=== PATIENT | female | born 1970 | race Caucasian/White ===

== ENCOUNTER 2019-05-31 12:12 | Inpatient (IN) | payer BC, OTHER ==
[2019-05-31] MEDS ORDERED: morphine CARPU-JECT 4 MG/1 ML DISP.SYRIN IVPUSH ONE (14:34)
[2019-05-31] MEDS ORDERED: morphine SULFATE 4 MG/ML VIAL ONE (15:01)
[2019-05-31] MEDS ORDERED: SODIUM CHLORIDE 1,000 ML IV ONE ×2 (15:17→17:11)
--- NOTE | 2019-05-31 15:18 | PDOC ---
*Physical Exam - Vital Signs Last Vital Signs Temp Pulse Resp BP Pulse Ox 99.4 F 130 H 19 140/73 97 05/31/19 12:15 05/31/19 12:15 05/31/19 12:15 05/31/19 12:15 05/31/19 12:15 - Physical Exam Comments: 05/31/19 15:59 The patient was seen and evaluated in conjunction with RASHAAD Hooker under my direct supervision, ancillary studies were reviewed. I independently evaluated the patient and I agree with the plan as outlined by RASHAAD Hooker . 48y F presenting with L flank/back pain since last night asociated with urinary urgency w/o vmiting, diarrhea, dysuia, melena, bpr, anterior abd pain. social: chronic smoker no PMD on exam pt in no distress, however noted to be tachycardic and hot to touch. pts rectal temp is febrile ddx - diverticulitis vs uti vs peyelonephriis sepsis orderset obtained fluid resusitation tylenol awaiting UA anticipate CT abd ED Treatment Course - LABORATORY CBC & Chemistry Diagram: 05/31/19 15:13 05/31/19 15:13 Medical Decision Making - Critical Care Time Total Critical Care Time (minutes): 45 Critical Care Statement: The care of this patient involved high complexity decision making to prevent further life threatening deterioration of the patient 's condition and/or to evaluate & treat vital organ system(s) failure or risk of failure. - Medical Decision Making 05/31/19 17:18 pts labs reviewed noted for leukocytosis suspect pyelo pt writen for abx awaiitng CT, anticipate admission for further mangement BP borderline - approx 102/68 currently after 2L of NS will continue to fluid resusitate as necessary 05/31/19 18:05 pt has a pulse differenial in her UE MAP of 78 in R arm and 57 in L arm - pt denies any complain of back pain, ches tpain, arm pain/tingling/numbness with use. will add on CTA to eval further her vasculature for dissection vs stenosis vs anatomic variation *DC/Admit/Observation/Transfer Diagnosis at time of Disposition: Fever Qualifiers: Fever type: unspecified Qualified Code(s): R50.9 - Fever, unspecified - Referrals - Patient Instructions - Post Discharge Activity
[2019-05-31] MEDS ORDERED: ACETAMINOPHEN 1000 MG/100 ML VIAL (NON FORMULARY) IVPB ONE ×2 (15:33→21:11)
[2019-05-31] MEDS ORDERED: ACETAMINOPHEN INJECTION 100 ML IVPB ONE ×2 (15:37→23:53)
[2019-05-31 15:45] LABS: BASO % 0.5 % (0-2.0); EOS % 0.2 % (0-4.5); EPI CELLS 4.3 /HPF (0-5/HPF); HEMATOCRIT 41.8 % (32.4-45.2); HYALINE CASTS 16 /lpf (0-8); LYMPH % 13.9 % (8-40); MCH 31.9 pg (25.7-33.7); MCHC 33.5 g/dl (32.0-36.0); MEAN PLT VOLUME 6.7 fl (7.5-11.1); MONO % 11.7 % (3.8-10.2); NEUT % 73.7 % (42.8-82.8); PLATELET COUNT 337 K/MM3 (134-434); RDW 13.3 % (11.6-15.6); URINE APPEARANCE TURBID; URINE BACTERIA 3516.8 /hpf (NEGATIVE); URINE BILIRUBIN NEGATIVE (NEGATIVE); URINE COLOR YELLOW; URINE GLUCOSE (UA) NEGATIVE (NEGATIVE); URINE KETONE NEGATIVE (NEGATIVE); URINE LEUK ESTERASE 3+ (NEGATIVE); URINE NITRITE NEGATIVE (NEGATIVE); URINE PROTEIN 2+ (NEGATIVE); URINE RBC 21 /hpf (0-4); URINE UROBILINOGEN 0.2 mg/dL (0.2-1.0); URINE WBC 1435 /hpf (0-5); WHITE BLOOD COUNT 16.8 K/mm3 (4.0-10.0)
--- NOTE | 2019-05-31 15:45 | PDOC ---
History of Present Illness - General Chief Complaint: Pain, Acute Stated Complaint: PAIN/URINARY PROBLEM Time Seen by Provider: 05/31/19 13:43 History Source: Patient Exam Limitations: Language Barrier Past History - Past Medical History Allergies/Adverse Reactions: Allergies Allergy/AdvReac Type Severity Reaction Status Date / Time No Known Allergies Allergy Verified 05/31/19 12:17 Home Medications: Ambulatory Orders Doxycycline Hyclate [Vibramycin -] 100 mg PO BID@1000,1800 #20 capsule 05/25/18 Anemia: No Asthma: No Cancer: No Cardiac Disorders: No CVA: No COPD: No CHF: No Dementia: No Diabetes: No GI Disorders: No Disorders: No HTN: No Liver Disease: No Seizures: No Thyroid Disease: No - Surgical History Neurologic Surgery: No - Suicide/Smoking/Psychosocial Hx Smoking History: Never smoked Have you smoked in the past 12 months: Yes Number of Cigarettes Smoked Daily: 5 Information on smoking cessation initiated: No 'Breaking Loose' booklet given: 05/22/18 Hx Alcohol Use: No Drug/Substance Use Hx: No Substance Use Type: None Hx Substance Use Treatment: No *Physical Exam - Vital Signs Last Vital Signs Temp Pulse Resp BP Pulse Ox 98.0 F 117 H 20 89/73 L 94 L 05/31/19 15:35 05/31/19 15:35 05/31/19 15:35 05/31/19 15:35 05/31/19 15:35 - Physical Exam General Appearance: Yes: Mild Distress Respiratory/Chest: positive: Lungs Clear, Normal Breath Sounds. negative: Respiratory Distress Cardiovascular: positive: Regular Rhythm, Tachycardia. negative: Murmur Female Pelvic Exam: positive: normal adnexa. negative: CMT, discharge, adnexal tenderness, vaginal bleeding Gastrointestinal/Abdominal: positive: Tender (LLQ), Soft, Guarding (along LLQ). negative: Distended, Rebound, Hernia, Mass Musculoskeletal: negative: CVA Tenderness, CVA Tenderness (L) Neurologic: positive: Alert, Normal Mood/Affect ED Treatment Course - LABORATORY CBC & Chemistry Diagram: 05/31/19 15:13 05/31/19 15:13 Medical Decision Making - Medical Decision Making 48 y/o F with no sig pmh presents with LLQ abd pain radiating to back from yesterday along with increased urinary frequency and urgency, but states only passing a little urine. Also mentions subjective fever from last night and nausea. Denies URI sxs, sob, cp, vomiting, diarrhea, unusual vaginal discharge. Is sexually active with only her . Has irregular menstrual cycles; last cycle was 2 weeks ago. Denies prior surgeries. Patient was able to void normally in ED Consider kidney stone? pyelo? diverticulitis? Repeat temp was 98 orally EKG: Sinus tach at 126 Patient later noted with drop in blood pressure to 89/73; HR has improved to 116 Patient getting IVF Will check rectal temp Sepsis protocol initiated Labs sent and pending 05/31/19 15:40 Rectal temp was 101.5 05/31/19 15:56 Patient with leukocytosis, +urine for infection Urine culture was sent Will need CT A/P as well to r/o other pathology Signed out to RASHAAD Barrientos 05/31/19 16:13 *DC/Admit/Observation/Transfer Diagnosis at time of Disposition: Fever Qualifiers: Fever type: unspecified Qualified Code(s): R50.9 - Fever, unspecified - Referrals - Patient Instructions - Post Discharge Activity
[2019-05-31 16:08] LABS: ALBUMIN 3.3 g/dl (3.4-5.0); ALK PHOS 66 U/L (45-117); ANION GAP 8 MMOL/L (8-16); BILIRUBIN,TOTAL 0.4 mg/dL (0.2-1); BLOOD UREA NITROGEN 10.4 mg/dL (7-18); CALCIUM 8.8 mg/dL (8.5-10.1); CHLORIDE 105 mmol/L (98-107); CO2 24 mmol/L (21-32); CREATININE 0.5 mg/dL (0.55-1.3); GLUCOSE,RANDOM 90 mg/dL (74-106); SGOT/AST 13 U/L (15-37); SGPT/ALT 18 U/L (13-61); SODIUM 136 mmol/L (136-145); TOT PROT 6.7 g/dl (6.4-8.2)
[2019-05-31] MEDS ORDERED: CEFTRIAXONE 1 GM in DEXTROSE 5%-WATER - 50 ML IVPB ONE (16:15)
--- NOTE | 2019-05-31 16:25 | PDOC ---
*Physical Exam - Vital Signs Last Vital Signs Temp Pulse Resp BP Pulse Ox 101.5 F H 117 H 20 89/73 L 94 L 05/31/19 16:04 05/31/19 15:35 05/31/19 15:35 05/31/19 15:35 05/31/19 15:35 - Physical Exam General Appearance: Yes: Nourished, Appropriately Dressed, Mild Distress ( appears diaphoretic, weak) Respiratory/Chest: positive: Lungs Clear, Normal Breath Sounds. negative: Rhonchi, Stridor, Wheezing Cardiovascular: positive: Tachycardia Gastrointestinal/Abdominal: positive: Tender (LLQ), Flat, Soft, Guarding, Tenderness (LLQ). negative: Rebound Extremity: positive: Other (1+ radial pulse in the L arm, R arm 3+ radial pulse) Neurologic: positive: Fully Oriented, Alert, Normal Mood/Affect, Normal Response ED Treatment Course - LABORATORY CBC & Chemistry Diagram: 05/31/19 15:13 05/31/19 15:13 - ADDITIONAL ORDERS Additional order review: Laboratory Results 05/31/19 05/31/19 05/31/19 15:13 15:13 15:13 Sodium Potassium Chloride Carbon Dioxide Anion Gap BUN Creatinine Est GFR (CKD-EPI)AfAm Est GFR (CKD-EPI)NonAf Random Glucose Calcium Total Bilirubin AST ALT Alkaline Phosphatase Total Protein Albumin Serum , Qual Negative Urine Color Yellow Urine Appearance Turbid Urine pH 5.0 Ur Specific [place] 1.012 Urine Protein 2+ H Urine Glucose (UA) Negative Urine Ketones Negative Urine Blood 2+ H Urine Nitrite Negative Urine Bilirubin Negative Urine Urobilinogen 0.2 Ur Leukocyte Esterase 3+ H Urine WBC (Auto) 1435 Urine RBC (Auto) 21 Urine Casts (Auto) 16 U Epithel Cells (Auto) 4.3 Urine Bacteria (Auto) 3516.8 Urine HCG, Qual Negative 05/31/19 15:13 Sodium 136 Potassium 4.0 Chloride 105 Carbon Dioxide 24 Anion Gap 8 BUN 10.4 Creatinine 0.5 L Est GFR (CKD-EPI)AfAm 134.52 Est GFR (CKD-EPI)NonAf 116.07 Random Glucose 90 Calcium 8.8 Total Bilirubin 0.4 AST 13 L ALT 18 Alkaline Phosphatase 66 Total Protein 6.7 Albumin 3.3 L Serum , Qual Urine Color Urine Appearance Urine pH Ur Specific [place] Urine Protein Urine Glucose (UA) Urine Ketones Urine Blood Urine Nitrite Urine Bilirubin Urine Urobilinogen Ur Leukocyte Esterase Urine WBC (Auto) Urine RBC (Auto) Urine Casts (Auto) U Epithel Cells (Auto) Urine Bacteria (Auto) Urine HCG, Qual 05/31/19 15:13 RBC 4.40 MCV 95.0 MCHC 33.5 RDW 13.3 MPV 6.7 L Neutrophils % 73.7 D Lymphocytes % 13.9 D Monocytes % 11.7 H Eosinophils % 0.2 D Basophils % 0.5 - Medications Given in the ED: ED Medications Discontinued Medications Generic Name Dose Route Start Last Admin Trade Name Freq PRN Reason Stop Dose Admin Acetaminophen 1,000 mg 05/31/19 15:33 05/31/19 15:44 Ofirmev Injection - IVPB 05/31/19 15:34 1,000 mg ONCE ONE Administration Sodium Chloride 1,000 mls @ 1,000 mls/hr 05/31/19 15:17 05/31/19 15:34 Normal Saline - IV 05/31/19 16:16 1,000 mls/hr .Q1H ONE Administration Medical Decision Making - Medical Decision Making 05/31/19 21:52 Sign out was received on this patient from RASHAAD Ding at 16:00; delayed documentation d/t patient care. Pt was pending labs and CTAP abdomen On repeat exam pt with LLQ pain after ofirmev (+) UTI, Leukocytosis to 16. EKG: rate 126 BPM Sinus tach. Normal intervals and axis. Non-specific T wave abnormalities in the lateral leads. Labile blood pressure; sepsis work up was ordered Of note; BP in L are 20 systolic points lower than the R arm, CTA chest ordered. 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 Several small bilateral renal cortical low-attenuation areas are seen which may be on the basis oc acute infarction versus acute pyelonephritis. There is possible mild diffuse urinary bladder wall thickening. Acute vs chronic cystitis. Non-specific 4.3 x2.7 L adenexal cyst is noted. Recommend non- emergent sonogram Case discussed with Dr. Ng. Given CT findings, possible endocarditis vs sepsis? Bedside US performed by Dr. Mccallum Pt to be admitted to ICU. Renal, Vascular and Symphony paged 05/31/19 22:[address] Hodge; Dr. Ng endorsed the patient. *DC/Admit/Observation/Transfer Diagnosis at time of Disposition: Fever Qualifiers: Fever type: unspecified Qualified Code(s): R50.9 - Fever, unspecified - Referrals - Patient Instructions - Post Discharge Activity
[2019-05-31] MEDS ORDERED: SODIUM CHLORIDE 0.9% 1000 ML INFUS.BAG IV ONE (16:29)
[2019-05-31] MEDS ORDERED: PIPERACILLIN/TAZOB 3.375 GM 3.375 GM in DEXTROSE 5%-WATER - 50 ML IVPB ONE (16:40)
[2019-05-31] MEDS ORDERED: VANCOMYCIN 1,000 MG in DEXTROSE 5%-WATER - 250 ML IVPB ONE (16:40)
[2019-05-31 17:11] LABS: VENOUS PO2 < 49 mmHg (28-48)
[2019-05-31] MEDS ORDERED: LACTATED RINGERS SOLUTION 1000 ML INFUS.BAG IV ONE (17:24)
[2019-05-31] MEDS ORDERED: PIPERACILLIN/TAZOB 3.375 GM 3.375 GM/50 ML BAG IVPB ONE (18:11)
--- NOTE | 2019-05-31 18:25 | PDOC ---
*Physical Exam - Vital Signs Last Vital Signs Temp Pulse Resp BP Pulse Ox 101.5 F H 117 H 20 89/73 L 94 L 05/31/19 16:04 05/31/19 15:35 05/31/19 15:35 05/31/19 15:35 05/31/19 15:35 ED Treatment Course - LABORATORY CBC & Chemistry Diagram: 05/31/19 15:13 05/31/19 15:13 - ADDITIONAL ORDERS Additional order review: Laboratory Results 05/31/19 05/31/19 05/31/19 16:43 16:43 16:39 PTT (Actin FS) 34.1 VBG pH 7.40 POC VBG pCO2 35.0 L POC VBG pO2 < 49 H VBG HCO3 21.3 L VBG O2 Sat (Samia) 71.3 VBG Base Excess -2.3 L Sodium Potassium Chloride Carbon Dioxide Anion Gap BUN Creatinine Est GFR (CKD-EPI)AfAm Est GFR (CKD-EPI)NonAf Random Glucose Lactic Acid 0.9 Calcium Total Bilirubin AST ALT Alkaline Phosphatase Total Protein Albumin Serum , Qual Urine Color Urine Appearance Urine pH Ur Specific [place] Urine Protein Urine Glucose (UA) Urine Ketones Urine Blood Urine Nitrite Urine Bilirubin Urine Urobilinogen Ur Leukocyte Esterase Urine WBC (Auto) Urine RBC (Auto) Urine Casts (Auto) U Pathogenic Cast Auto U Epithel Cells (Auto) Urine Bacteria (Auto) Urine HCG, Qual 05/31/19 05/31/19 05/31/19 15:13 15:13 15:13 PTT (Actin FS) VBG pH POC VBG pCO2 POC VBG pO2 VBG HCO3 VBG O2 Sat (Samia) VBG Base Excess Sodium Potassium Chloride Carbon Dioxide Anion Gap BUN Creatinine Est GFR (CKD-EPI)AfAm Est GFR (CKD-EPI)NonAf Random Glucose Lactic Acid Calcium Total Bilirubin AST ALT Alkaline Phosphatase Total Protein Albumin Serum , Qual Negative Urine Color Yellow Urine Appearance Turbid Urine pH 5.0 Ur Specific [place] 1.012 Urine Protein 2+ H Urine Glucose (UA) Negative Urine Ketones Negative Urine Blood 2+ H Urine Nitrite Negative Urine Bilirubin Negative Urine Urobilinogen 0.2 Ur Leukocyte Esterase 3+ H Urine WBC (Auto) 1435 Urine RBC (Auto) 21 Urine Casts (Auto) 16 U Pathogenic Cast Auto None seen U Epithel Cells (Auto) 4.3 Urine Bacteria (Auto) 3516.8 Urine HCG, Qual Negative 05/31/19 15:13 PTT (Actin FS) VBG pH POC VBG pCO2 POC VBG pO2 VBG HCO3 VBG O2 Sat (Samia) VBG Base Excess Sodium 136 Potassium 4.0 Chloride 105 Carbon Dioxide 24 Anion Gap 8 BUN 10.4 Creatinine 0.5 L Est GFR (CKD-EPI)AfAm 134.52 Est GFR (CKD-EPI)NonAf 116.07 Random Glucose 90 Lactic Acid Calcium 8.8 Total Bilirubin 0.4 AST 13 L ALT 18 Alkaline Phosphatase 66 Total Protein 6.7 Albumin 3.3 L Serum , Qual Urine Color Urine Appearance Urine pH Ur Specific [place] Urine Protein Urine Glucose (UA) Urine Ketones Urine Blood Urine Nitrite Urine Bilirubin Urine Urobilinogen Ur Leukocyte Esterase Urine WBC (Auto) Urine RBC (Auto) Urine Casts (Auto) U Pathogenic Cast Auto U Epithel Cells (Auto) Urine Bacteria (Auto) Urine HCG, Qual 05/31/19 15:13 RBC 4.40 MCV 95.0 MCHC 33.5 RDW 13.3 MPV 6.7 L Neutrophils % 73.7 D Lymphocytes % 13.9 D Monocytes % 11.7 H Eosinophils % 0.2 D Basophils % 0.5 - Medications Given in the ED: ED Medications Discontinued Medications Generic Name Dose Route Start Last Admin Trade Name Freq PRN Reason Stop Dose Admin Acetaminophen 1,000 mg 05/31/19 15:33 05/31/19 15:44 Ofirmev Injection - IVPB 05/31/19 15:34 1,000 mg ONCE ONE Administration Sodium Chloride 1,000 mls @ 1,000 mls/hr 05/31/19 15:17 05/31/19 15:34 Normal Saline - IV 05/31/19 16:16 1,000 mls/hr .Q1H ONE Administration Sodium Chloride 1,000 ml 05/31/19 16:29 05/31/19 16:26 Normal Saline - IV 05/31/19 16:30 1,000 ml ONCE ONE Administration Medical Decision Making - Medical Decision Making 05/31/19 18:18 Patient upgraded from fast track by REID Kee. Seen and briefly evaluated at bedside with attending, Dr. Gary, for concern of pyelo w/ hypotension. Pt noted to have pulse difference in LUE vs RUE. LUE 1+ radial and 3+ pulses. BP difference in arms, L arm 70's/50's and R arm 100's/60's. Pt denies chest pain, SOB, palpitations, claudication, numbness, tingling, or weakness. However, due to obviously variable BP, will obtain CXR to evaluate for aorta, in absence of any concerning complaints. Due to L arm BP, pt receiving 3rd L bolus and will continue to monitor. CTA chest and CTAP ordered. Pt otherwise well appearing. Will continue to monitor closely. *DC/Admit/Observation/Transfer Diagnosis at time of Disposition: Fever Qualifiers: Fever type: unspecified Qualified Code(s): R50.9 - Fever, unspecified - Referrals - Patient Instructions - Post Discharge Activity
[2019-05-31] MEDS ORDERED: VANCOMYCIN 1 GRAM (PRE-DOCKED) 1,000 MG/250 ML BAG IVPB ONE ×2 (18:53→23:53)
[2019-05-31 21:34] LABS: INR 1.14 (0.83-1.09); PROTHROMBIN TIME (PATIENT) 13.5 SEC (9.7-13.0)
[2019-05-31] MEDS ORDERED: CEFEPIME 2 GM in DEXTROSE 5%-WATER 100 ML IVPB ONE (21:43)
--- NOTE | 2019-05-31 22:22 | CONSULT ---
Consultation: REQUESTING PROVIDER: Dr. Ng CONSULT REQUEST: We have been asked to medically evaluate this patient for ICU HISTORY OF PRESENT ILLNESS: 48 yo F no significant medical history presented to ED for subjective fever, chills, dysuria, and left lower back pain. pt states she first noticed the dysuria 3 days ago. pt states the fever and cough began this am. Pt states that she is otherwise healthy. While in the ED, pt is tachycardic, febrile. pt had CTA showing L subclavian occlusion in addition b/l renal low attenuated areas suspicious for acute infarct vs pyelo. bedside echo was inconclusive for mitral valve vegetations. REVIEW OF SYSTEMS: CONSTITUTIONAL: Present: fever, chills, diaphoresis Absent: generalized weakness, malaise, loss of appetite, weight change HEENT: Absent: rhinorrhea, nasal congestion, throat pain, throat swelling, difficulty swallowing, mouth swelling, ear pain, eye pain, visual changes CARDIOVASCULAR: Absent: chest pain, syncope, palpitations, irregular heart rate, lightheadedness , peripheral edema RESPIRATORY: Present: cough Absent: shortness of breath, dyspnea with exertion, orthopnea, wheezing, stridor, hemoptysis GASTROINTESTINAL: Present: nausea, vomiting, diarrhea Absent: abdominal pain, abdominal distension, constipation, melena, hematochezia GENITOURINARY: Present: dysuria, L flank pain, urgency, frequency Absent: hesitancy, hematuria, genital pain MUSCULOSKELETAL: Present: back pain Absent: myalgia, arthralgia, joint swelling, neck pain SKIN: Absent: rash, itching, pallor HEMATOLOGIC/IMMUNOLOGIC: Absent: easy bleeding, easy bruising, lymphadenopathy, frequent infections ENDOCRINE: Absent: unexplained weight gain, unexplained weight loss, heat intolerance, cold intolerance NEUROLOGIC: Absent: headache, focal weakness or paresthesias, dizziness, unsteady gait, seizure, mental status changes, bladder or bowel incontinence PHYSICAL EXAMINATION Vital Signs - 24 hr 05/31/19 05/31/19 05/31/19 12:15 15:35 16:04 Temperature 99.4 F 98.0 F 101.5 F H Pulse Rate 130 H Pulse Rate [ 117 H Left Radial] Respiratory 19 20 Rate Blood Pressure 140/73 Blood Pressure 89/73 L [Left Arm] O2 Sat by Pulse 97 94 L Oximetry (%) GENERAL: Awake, alert, and fully oriented, in no acute distress. NECK: Normal range of motion, supple without lymphadenopathy. + JVD LUNGS: Breath sounds equal, scattered wheezes, b/l crackles crackles. No accessory muscle use. HEART: tachycardic rate and regular rhythm, normal S1 and S2 without murmur, rub or gallop. ABDOMEN: Soft, nontender, not distended, normoactive bowel sounds, no guarding, no rebound, no masses. MUSCULOSKELETAL: Normal range of motion at all joints. No bony deformities or tenderness. L CVA tenderness. UPPER EXTREMITIES: 2+ pulses, warm, well-perfused. No cyanosis. No clubbing. Cap refill <2 seconds. No peripheral edema. LOWER EXTREMITIES: 2+ pulses, warm, well-perfused. No calf tenderness. No peripheral edema. NEUROLOGICAL: Cranial nerves II-XII intact. Normal speech. Normal gait. PSYCHIATRIC: Cooperative. Good eye contact. Appropriate mood and affect. SKIN: Warm, dry, normal turgor, no rashes or lesions noted. Laboratory Last Values WBC 16.8 K/mm3 (4.0-10.0) H 05/31/19 15:13 RBC 4.40 M/mm3 (3.60-5.2) 05/31/19 15:13 Hgb 14.0 GM/dL (10.7-15.3) 05/31/19 15:13 Hct 41.8 % (32.4-45.2) 05/31/19 15:13 MCV 95.0 fl (80-96) 05/31/19 15:13 MCH 31.9 pg (25.7-33.7) 05/31/19 15:13 MCHC 33.5 g/dl (32.0-36.0) 05/31/19 15:13 RDW 13.3 % (11.6-15.6) 05/31/19 15:13 Plt Count 337 K/MM3 (134-434) 05/31/19 15:13 MPV 6.7 fl (7.5-11.1) L 05/31/19 15:13 Absolute Neuts (auto) 12.4 K/mm3 (1.5-8.0) H 05/31/19 15:13 Neutrophils % 73.7 % (42.8-82.8) D 05/31/19 15:13 Lymphocytes % 13.9 % (8-40) D 05/31/19 15:13 Monocytes % 11.7 % (3.8-10.2) H 05/31/19 15:13 Eosinophils % 0.2 % (0-4.5) D 05/31/19 15:13 Basophils % 0.5 % (0-2.0) 05/31/19 15:13 Nucleated RBC % 0 % (0-0) 05/31/19 15:13 ESR 38 mm/hr (0-20) H 05/31/19 19:58 PT with INR 13.50 SEC (9.7-13.0) H 05/31/19 16:43 INR 1.14 (0.83-1.09) H 05/31/19 16:43 PTT (Actin FS) 34.1 SECONDS (25.2-36.5) 05/31/19 16:43 VBG pH 7.40 (7.31-7.41) 05/31/19 16:39 POC VBG pCO2 35.0 mmHg (38-52) L 05/31/19 16:39 POC VBG pO2 < 49 mmHg (28-48) H 05/31/19 16:39 VBG HCO3 21.3 mmol/L (23-29) L 05/31/19 16:39 VBG O2 Sat (Samia) 71.3 % (70-80) 05/31/19 16:39 VBG Base Excess -2.3 meq/l (-2-2) L 05/31/19 16:39 Sodium 136 mmol/L (136-145) 05/31/19 15:13 Potassium 4.0 mmol/L (3.5-5.1) 05/31/19 15:13 Chloride 105 mmol/L (98-107) 05/31/19 15:13 Carbon Dioxide 24 mmol/L (21-32) 05/31/19 15:13 Anion Gap 8 MMOL/L (8-16) 05/31/19 15:13 BUN 10.4 mg/dL (7-18) 05/31/19 15:13 Creatinine 0.5 mg/dL (0.55-1.3) L 05/31/19 15:13 Est GFR (CKD-EPI)AfAm 134.52 05/31/19 15:13 Est GFR (CKD-EPI)NonAf 116.07 05/31/19 15:13 Random Glucose 90 mg/dL (74-106) 05/31/19 15:13 Lactic Acid 0.9 mmol/L (0.4-2.0) 05/31/19 16:43 Calcium 8.8 mg/dL (8.5-10.1) 05/31/19 15:13 Total Bilirubin 0.4 mg/dL (0.2-1) 05/31/19 15:13 AST 13 U/L (15-37) L 05/31/19 15:13 ALT 18 U/L (13-61) 05/31/19 15:13 Alkaline Phosphatase 66 U/L (45-117) 05/31/19 15:13 Troponin I < 0.02 ng/ml (0.00-0.05) 05/31/19 15:13 C-Reactive Protein 11.9 MG/DL (0.00-0.3) H 05/31/19 19:58 Total Protein 6.7 g/dl (6.4-8.2) 05/31/19 15:13 Albumin 3.3 g/dl (3.4-5.0) L 05/31/19 15:13 Serum , Qual Negative 05/31/19 15:13 Urine Color Yellow 05/31/19 15:13 Urine Appearance Turbid 05/31/19 15:13 Urine pH 5.0 (5.0-8.0) 05/31/19 15:13 Ur Specific [place] 1.012 (1.010-1.035) 05/31/19 15:13 Urine Protein 2+ (NEGATIVE) H 05/31/19 15:13 Urine Glucose (UA) Negative (NEGATIVE) 05/31/19 15:13 Urine Ketones Negative (NEGATIVE) 05/31/19 15:13 Urine Blood 2+ (NEGATIVE) H 05/31/19 15:13 Urine Nitrite Negative (NEGATIVE) 05/31/19 15:13 Urine Bilirubin Negative (NEGATIVE) 05/31/19 15:13 Urine Urobilinogen 0.2 mg/dL (0.2-1.0) 05/31/19 15:13 Ur Leukocyte Esterase 3+ (NEGATIVE) H 05/31/19 15:13 Urine WBC (Auto) 1435 /hpf (0-5) 05/31/19 15:13 Urine RBC (Auto) 21 /hpf (0-4) 05/31/19 15:13 Urine Casts (Auto) 16 /lpf (0-8) 05/31/19 15:13 U Pathogenic Cast Auto None seen /lpf (NEGATIVE) 05/31/19 15:13 U Epithel Cells (Auto) 4.3 /HPF (0-5/HPF) 05/31/19 15:13 Urine Bacteria (Auto) 3516.8 /hpf (NEGATIVE) 05/31/19 15:13 Urine HCG, Qual Negative 05/31/19 15:13 Current Medications Cefepime HCl 2 gm/ Dextrose 100 mls @ 200 mls/hr IVPB Q8H [facility] Cefepime HCl 2 gm/ Dextrose 100 mls @ 200 mls/hr IVPB Q8H [facility] Stop: 06/01/19 15:29 Vancomycin HCl (Vancomycin (Pre-Docked)) 1,000 mg IVPB DAILY [facility]; Protocol Vancomycin HCl (Vancomycin (Pre-Docked)) 1,000 mg IVPB DAILY@2000 [facility]; Protocol Stop: 06/01/19 20:01 Chest CTA; Abdomen Pelvis CT; : IMPRESSION: The thoracoabdominal aorta demonstrates no evidence of aneurysm or dissection. 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 Several small bilateral renal cortical low- attenuation areas are seen which may be on the basis of acute infarction versus acute pyelonephritis. Clinical/laboratory correlation is suggested. There is possible mild diffuse urinary bladder wall thickening - ? possible acute versus chronic cystitis. A nonspecific 4.3 x 2.7 cm left adnexal cyst is noted. Sonographic correlation is suggested, nonemergent versus emergent as clinically indicated. 1.5 cm involuting right ovarian cyst/follicle. ASSESSMENT/PLAN: 48 yo F no significant medical history presented to ED for subjective fever, chills, dysuria, and left lower back pain.pt admitted to ICU for sepsis 2/2 likely pyelonephritis. Sepsis likely 2/2 L pyelonephritis L subclavian occlusion B/L acute renal infarct vs pyelonephritis L adnexal cyst Neuro - AAOx3 Cardio -Echo in am; inconclusive bedside echo- possible mitral valve vegetations Vascular : L subclavian occlusion -vascular consult ( Dr. Loaiza ) appreciated -no acute surgical intervention -heme onc (Dr. Davison ) consulted -avoid BP reads on L arm Nephro: -Nephro consult (Dr. Cummings) recs appreciated -B/L acute renal infarct vs pyelonephritis -pending vasculitis workup ID: Sepsis likely 2/2 pyelonephritis -leukocytosis, febrile , tachycardia, L CVA tenderness -(+) UA -lactate wnl -ID (Dr. Beyer) recs appreciated -empiric vanc and zosyn -awaiting BCx , UCx -tylenol for fever or pain F/E/N -IV NS @ 100 mls/hr -npo DVT ppx: Hep SQ Dispo: We will continue to follow the patient. Thank you for this consultative opportunity. Visit type - Emergency Visit Emergency Visit: Yes ED Registration Date: 05/31/19 Care time: The patient presented to the Emergency Department on the above date and was hospitalized for further evaluation of their emergent condition. - New Patient This patient is new to me today: Yes Date on this admission: 06/01/19 - Critical Care Critical Care patient: Yes Total Critical Care Time (in minutes): 36 Critical Care Statement: The care of this patient involved high complexity decision making to prevent further life threatening deterioration of the patient 's condition and/or to evaluate & treat vital organ system(s) failure or risk of failure. ATTENDING PHYSICIAN STATEMENT I saw and evaluated the patient. I reviewed the resident's note and discussed the case with the resident. I agree with the resident's findings and plan as documented. SUBJECTIVE: OBJECTIVE: ASSESSMENT AND PLAN:
[2019-05-31] MEDS ORDERED: ALBUTEROL SO4 0.083% IH SOL 2.5 MG/3 ML VIAL.NEB. NEB PRN (22:39)
[2019-05-31] MEDS ORDERED: SODIUM CHLORIDE 1,000 ML IV SCH (22:45)
[2019-05-31] MEDS ORDERED: ACETAMINOPHEN 325 MG TABLET (FP) PO PRN (23:29)
--- NOTE | 2019-06-01 00:37 | HP ---
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 She presented to the ER with complaints of burning micturation and increased urinary frequency for 3 days associated with fevers, chills, and B/L flank pain for 1 day. She states that she feels the need to urinate every few minutes. The flank pain started yesterday and initially began on her left side but eventually spread to the right flank as well, sudden in onset, described as a burning pain, constant in nature but intermittent in intensity ranging between 4/10 to 8/10, aggravated by walking and partially alleviated by staying still. She states that she has never had a UTI before. Her menstrual cycle normally lasts 3-4 days with medium flow and a frequency of 1/month. Her LMP ended 2 weeks ago, but she states that 3 days ago she had some menstrual bleeding for 1 day, but no hematuria. She is and sexually active with her . 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 Smokin/2 pack a day Alcohol: none Drugs: none Family History: Mother had an GA No history of strokes, PE Allergies No Known Allergies Allergy (Verified 05/31/19 12:17) HOME MEDICATIONS: Home Medications Medication Instructions Recorded NK [No Known Home Medication] 05/31/19 REVIEW OF SYSTEMS CONSTITUTIONAL: FEVERS Absent: fever, chills, diaphoresis, generalized weakness, malaise, loss of appetite, weight change HEENT: Absent: rhinorrhea, nasal congestion, throat pain, throat swelling, difficulty swallowing, mouth swelling, ear pain, eye pain, visual changes CARDIOVASCULAR: Absent: chest pain, syncope, palpitations, irregular heart rate, lightheadedness , peripheral edema RESPIRATORY: SOB, COUGH Absent: cough, shortness of breath, dyspnea with exertion, orthopnea, wheezing, stridor, hemoptysis GASTROINTESTINAL: DIARRHEA Absent: abdominal pain, abdominal distension, nausea, vomiting, diarrhea, constipation, melena, hematochezia GENITOURINARY: DYSURIA, URGENCY Absent: dysuria, frequency, urgency, hesitancy, hematuria, flank pain, genital pain MUSCULOSKELETAL: Absent: myalgia, arthralgia, joint swelling, back pain, neck pain SKIN: Absent: rash, itching, pallor HEMATOLOGIC/IMMUNOLOGIC: Absent: easy bleeding, easy bruising, lymphadenopathy, frequent infections ENDOCRINE: Absent: unexplained weight gain, unexplained weight loss, heat intolerance, cold intolerance NEUROLOGIC: Absent: headache, focal weakness or paresthesias, dizziness, unsteady gait, seizure, mental status changes, bladder or bowel incontinence PSYCHIATRIC: Absent: anxiety, depression, suicidal or homicidal ideation, hallucinations. PHYSICAL EXAMINATION Vital Signs - 24 hr 05/31/19 05/31/19 05/31/19 12:15 15:35 16:04 Temperature 99.4 F 98.0 F 101.5 F H Pulse Rate 130 H Pulse Rate [ 117 H Left Radial] Respiratory 19 20 Rate Blood Pressure 140/73 Blood Pressure 89/73 L [Left Arm] O2 Sat by Pulse 97 94 L Oximetry (%) 06/01/19 00:27 Temperature 99.9 F H Pulse Rate Pulse Rate [ 104 H Left Radial] Respiratory 20 Rate Blood Pressure Blood Pressure 105/55 L [Left Arm] O2 Sat by Pulse 96 Oximetry (%) GENERAL: Awake, alert, and fully oriented, complaining of flank pain HEAD: Normal with no signs of trauma. EYES: Pupils equal, round and reactive to light, extraocular movements intact, sclera anicteric, conjunctiva clear. No lid lag. EARS, NOSE, THROAT: Ears normal, nares patent, oropharynx clear without exudates. Moist mucous membranes. NECK: Normal range of motion, supple without lymphadenopathy, JVD, or masses. LUNGS: Breath sounds equal, clear to auscultation bilaterally. No wheezes, and no crackles. No accessory muscle use. HEART: Regular rate and rhythm, normal S1 and S2 without murmur, rub or gallop. ABDOMEN: Soft, not distended, significant left sided CVA tenderness MUSCULOSKELETAL: Normal range of motion at all joints. No bony deformities or tenderness. No CVA tenderness. UPPER EXTREMITIES: 2+ on right and 1+ on left LOWER EXTREMITIES: 2+ on right and 1+ on left NEUROLOGICAL: Cranial nerves II-XII intact. Normal speech. Normal gait. PSYCHIATRIC: Cooperative. Good eye contact. Appropriate mood and affect. SKIN: Warm, dry, normal turgor, no rashes or lesions noted, normal capillary refill. Laboratory Results - last 24 hr 05/31/19 05/31/19 05/31/19 15:13 15:13 15:13 WBC 16.8 H RBC 4.40 Hgb 14.0 Hct 41.8 MCV 95.0 MCH 31.9 MCHC 33.5 RDW 13.3 Plt Count 337 MPV 6.7 L Absolute Neuts (auto) 12.4 H Neutrophils % 73.7 D Lymphocytes % 13.9 D Monocytes % 11.7 H Eosinophils % 0.2 D Basophils % 0.5 Nucleated RBC % 0 ESR PT with INR INR PTT (Actin FS) VBG pH POC VBG pCO2 POC VBG pO2 VBG HCO3 VBG O2 Sat (Samia) VBG Base Excess Sodium 136 Potassium 4.0 Chloride 105 Carbon Dioxide 24 Anion Gap 8 BUN 10.4 Creatinine 0.5 L Est GFR (CKD-EPI)AfAm 134.52 Est GFR (CKD-EPI)NonAf 116.07 Random Glucose 90 Lactic Acid Calcium 8.8 Total Bilirubin 0.4 AST 13 L ALT 18 Alkaline Phosphatase 66 Troponin I < 0.02 C-Reactive Protein Total Protein 6.7 Albumin 3.3 L Serum , Qual Negative Urine Color Urine Appearance Urine pH Ur Specific [place] Urine Protein Urine Glucose (UA) Urine Ketones Urine Blood Urine Nitrite Urine Bilirubin Urine Urobilinogen Ur Leukocyte Esterase Urine WBC (Auto) Urine RBC (Auto) Urine Casts (Auto) U Pathogenic Cast Auto U Epithel Cells (Auto) Urine Bacteria (Auto) Urine HCG, Qual 05/31/19 05/31/19 05/31/19 15:13 15:13 16:39 WBC RBC Hgb Hct MCV MCH MCHC RDW Plt Count MPV Absolute Neuts (auto) Neutrophils % Lymphocytes % Monocytes % Eosinophils % Basophils % Nucleated RBC % ESR PT with INR INR PTT (Actin FS) VBG pH 7.40 POC VBG pCO2 35.0 L POC VBG pO2 < 49 H VBG HCO3 21.3 L VBG O2 Sat (Samia) 71.3 VBG Base Excess -2.3 L Sodium Potassium Chloride Carbon Dioxide Anion Gap BUN Creatinine Est GFR (CKD-EPI)AfAm Est GFR (CKD-EPI)NonAf Random Glucose Lactic Acid Calcium Total Bilirubin AST ALT Alkaline Phosphatase Troponin I C-Reactive Protein Total Protein Albumin Serum , Qual Urine Color Yellow Urine Appearance Turbid Urine pH 5.0 Ur Specific [place] 1.012 Urine Protein 2+ H Urine Glucose (UA) Negative Urine Ketones Negative Urine Blood 2+ H Urine Nitrite Negative Urine Bilirubin Negative Urine Urobilinogen 0.2 Ur Leukocyte Esterase 3+ H Urine WBC (Auto) 1435 Urine RBC (Auto) 21 Urine Casts (Auto) 16 U Pathogenic Cast Auto None seen U Epithel Cells (Auto) 4.3 Urine Bacteria (Auto) 3516.8 Urine HCG, Qual Negative 05/31/19 05/31/19 05/31/19 16:43 16:43 16:43 WBC RBC Hgb Hct MCV MCH MCHC RDW Plt Count MPV Absolute Neuts (auto) Neutrophils % Lymphocytes % Monocytes % Eosinophils % Basophils % Nucleated RBC % ESR PT with INR 13.50 H INR 1.14 H PTT (Actin FS) 34.1 VBG pH POC VBG pCO2 POC VBG pO2 VBG HCO3 VBG O2 Sat (Samia) VBG Base Excess Sodium Potassium Chloride Carbon Dioxide Anion Gap BUN Creatinine Est GFR (CKD-EPI)AfAm Est GFR (CKD-EPI)NonAf Random Glucose Lactic Acid 0.9 Calcium Total Bilirubin AST ALT Alkaline Phosphatase Troponin I C-Reactive Protein Total Protein Albumin Serum , Qual Urine Color Urine Appearance Urine pH Ur Specific [place] Urine Protein Urine Glucose (UA) Urine Ketones Urine Blood Urine Nitrite Urine Bilirubin Urine Urobilinogen Ur Leukocyte Esterase Urine WBC (Auto) Urine RBC (Auto) Urine Casts (Auto) U Pathogenic Cast Auto U Epithel Cells (Auto) Urine Bacteria (Auto) Urine HCG, Qual 05/31/19 05/31/19 19:58 19:58 WBC RBC Hgb Hct MCV MCH MCHC RDW Plt Count MPV Absolute Neuts (auto) Neutrophils % Lymphocytes % Monocytes % Eosinophils % Basophils % Nucleated RBC % ESR 38 H PT with INR INR PTT (Actin FS) VBG pH POC VBG pCO2 POC VBG pO2 VBG HCO3 VBG O2 Sat (Samia) VBG Base Excess Sodium Potassium Chloride Carbon Dioxide Anion Gap BUN Creatinine Est GFR (CKD-EPI)AfAm Est GFR (CKD-EPI)NonAf Random Glucose Lactic Acid Calcium Total Bilirubin AST ALT Alkaline Phosphatase Troponin I C-Reactive Protein 11.9 H Total Protein Albumin Serum , Qual Urine Color Urine Appearance Urine pH Ur Specific [place] Urine Protein Urine Glucose (UA) Urine Ketones Urine Blood Urine Nitrite Urine Bilirubin Urine Urobilinogen Ur Leukocyte Esterase Urine WBC (Auto) Urine RBC (Auto) Urine Casts (Auto) U Pathogenic Cast Auto U Epithel Cells (Auto) Urine Bacteria (Auto) Urine HCG, Qual ASSESSMENT/PLAN: 48 YO female with no significant PMH. Presented to the ER with complaints of burning micturation and increased urinary frequency for 3 days associated with fevers, chills, and B/L flank pain for 1 day. 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 #Sepsis 2/2 Pyelonephritis - WBC 16.8, Temp 101.5 - CT AP: diffuse bladder thickening/B/L renal infarcts vs Pyelo - Pelvic/Renal US ordered - ESR, CRP, Lactic Acid ordered - Blood and urine cx sent - Vancomycin 1gm, Zosyn 3.375gm, Ceftriaxone 1gm given in ER - Morphine 4mg IVPUSH, Ofiramev given for pain - Nephro consulted, Dr. Cummings, ER staff spoke with Dr Cummings, no acute intervention at this time - ID consulted, Dr. 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 Davison #FEN - N/S @ 100 - Mg, Phos ordered #DVT PE - Heparin 5000 SQ #Code Status - Full code Visit type - Emergency Visit Emergency Visit: Yes ED Registration Date: 05/31/19 Care time: The patient presented to the Emergency Department on the above date and was hospitalized for further evaluation of their emergent condition. - New Patient This patient is new to me today: Yes Date on this admission: 06/01/19 - Critical Care Critical Care patient: No ATTENDING PHYSICIAN STATEMENT I saw and evaluated the patient. I reviewed the resident's note and discussed the case with the resident. I agree with the resident's findings and plan as documented. SUBJECTIVE: OBJECTIVE: ASSESSMENT AND PLAN:
[2019-06-01] MEDS ORDERED: PIPERACILLIN/TAZOB 3.375 GM 3.375 GM in DEXTROSE 5%-WATER - 50 ML IVPB ONE (01:30)
[2019-06-01] MEDS ORDERED: PIPERACILLIN/TAZOBACTAM 3.375 GM VIAL IVPB ONE ×3 (01:31→17:08)
[2019-06-01] MEDS ORDERED: DEXTROSE 5%-WATER - 50 ML IVPB ONE ×3 (01:31→17:08)
--- NOTE | 2019-06-01 03:08 | PN ---
Teaching Attending Note Name of Resident: Julius Moore ATTENDING PHYSICIAN STATEMENT I saw and evaluated the patient. Chart, data, imaging reviewed I reviewed the resident's note and discussed the case with the resident. I agree with the resident's findings and plan as documented. SUBJECTIVE: 48 year old woman c/o dysuria for about 3 day days associated with fever, chills , back pain L>R. tachy, hypotensive in ER, s/p multiple fluid boluses. OBJECTIVE: Last Vital Signs Temp Pulse Resp BP Pulse Ox 99.9 F H 104 H 20 105/55 L 96 06/01/19 00:27 06/01/19 00:27 06/01/19 00:27 06/01/19 00:27 06/01/19 00:27 general - appears acutely ill, uncomfortable heent- at, nc, normal sclera neck supple cv-s1+s2+rrr chest clear b/l abd- left sided cva tenderness, no, no masses skin - no rashes extremities -2+ radial pulses b/l Abnormal Lab Results 05/31/19 05/31/19 05/31/19 15:13 15:13 15:13 WBC 16.8 H MPV 6.7 L Absolute Neuts (auto) 12.4 H Monocytes % 11.7 H ESR PT with INR INR POC VBG pCO2 POC VBG pO2 VBG HCO3 VBG Base Excess Creatinine 0.5 L AST 13 L C-Reactive Protein Albumin 3.3 L Urine Protein 2+ H Urine Blood 2+ H Ur Leukocyte Esterase 3+ H 05/31/19 05/31/19 05/31/19 16:39 16:43 19:58 WBC MPV Absolute Neuts (auto) Monocytes % ESR PT with INR 13.50 H INR 1.14 H POC VBG pCO2 35.0 L POC VBG pO2 < 49 H VBG HCO3 21.3 L VBG Base Excess -2.3 L Creatinine AST C-Reactive Protein 11.9 H Albumin Urine Protein Urine Blood Ur Leukocyte Esterase 05/31/19 19:58 WBC MPV Absolute Neuts (auto) Monocytes % ESR 38 H PT with INR INR POC VBG pCO2 POC VBG pO2 VBG HCO3 VBG Base Excess Creatinine AST C-Reactive Protein Albumin Urine Protein Urine Blood Ur Leukocyte Esterase Studies reviewed ASSESSMENT AND PLAN: #critically ill woman w/ severe sepsis secondary to pyelnephritis- bladder wall thickening is seen on ct of abd/pelvis. High fever, tachycardia, hypotension, leukocytosis. Grossly+ UA with pyuria, numerous bacteria. Incidental finding of left subclavian a. occlusion. Several b/l renal cortical low attenuation area s of attenuation- pyelonephritis vs acute infarcts. No aortic anneurysm seen. Incidental finding of 4.3 x 2.7cm left adnexal cyst. As per discussion of ER attending w/ Dr. Loaiza of vascualar surgery- no indication for anticoagulation for subclavian occlusion as this may be chronic finding. elevated inflammation markers -esr, crp c/w infection. Suspiscion for underlying pro-coagulopathy as patient spontaneously was found to have subclavian a. stenosis. R/o antiphospholipid syndrome, protein c, s deficency, factor 5 leiden, vasculitis. -icu for closer monitoring -s/p vancomcyin, zosyn -urine, blood cultures -montitor vs closely -IV fluid hydration -pain control - morphine IV prn -no anticoagulation at this time as per vascular surgery recs -antiphospholipid antibodies -margaret -c -anca -p- anca -spep -heme/onc, renal, id, vascular consults -ekg -dvt ppx- heparin sc critical care time- 30 min
[2019-06-01 06:18] LABS: BASO % 0.6 % (0-2.0); EOS % 0.7 % (0-4.5); HEMATOCRIT 38.2 % (32.4-45.2); HEMOGLOBIN 12.8 GM/dL (10.7-15.3); LYMPH % 18.4 % (8-40); MCH 32.1 pg (25.7-33.7); MCHC 33.5 g/dl (32.0-36.0); MEAN CELL VOLUME 95.7 fl (80-96); MEAN PLT VOLUME 6.7 fl (7.5-11.1); MONO % 10.6 % (3.8-10.2); NEUT % 69.7 % (42.8-82.8); PLATELET COUNT 274 K/MM3 (134-434); RBC 3.99 M/mm3 (3.60-5.2); RDW 13.4 % (11.6-15.6); WHITE BLOOD COUNT 19.2 K/mm3 (4.0-10.0)
[2019-06-01 06:49] LABS: ALBUMIN 2.7 g/dl (3.4-5.0); BILIRUBIN,TOTAL 0.7 mg/dL (0.2-1); BLOOD UREA NITROGEN 6.5 mg/dL (7-18); CALCIUM 7.7 mg/dL (8.5-10.1); CREATININE 0.4 mg/dL (0.55-1.3); MAGNESIUM 1.9 mg/dL (1.8-2.4); PHOSPHOROUS 2.8 mg/dL (2.5-4.9); POTASSIUM 3.5 mmol/L (3.5-5.1); TOT PROT 5.7 g/dl (6.4-8.2)
[2019-06-01] MEDS ORDERED: CEFEPIME 2 GM in DEXTROSE 5%-WATER 100 ML IVPB SCH ×3 (07:00)
--- NOTE | 2019-06-01 07:34 | PN ---
Progress Note (short form) - Note Progress Note: Pyelonephritis Subclavian thrombus; no AC per vascular recs Seen in ICU; please refer to h and P from today's visit for exam/billing information. Discussed with ID; low osborn. Pain improved. She is being transferred to the floor from ICU. Imaging shows ?renal infarct? Will discuss with specialty services and further investigate. Following up with consulting services, monitor in ICU Visit type - Emergency Visit Emergency Visit: No - New Patient This patient is new to me today: Yes Date on this admission: 06/02/19 - Critical Care Critical Care patient: No
--- NOTE | 2019-06-01 08:26 | PN ---
Physical Exam: SUBJECTIVE: Patient seen and examined at bedside. No acute events since being admitted to ICU overnight. Pt endorsing mild f/c, mild headache, mild flank pain. Denies chest pain, sob, abdominal pain, n/v, dysuria. OBJECTIVE: Vital Signs Period Temp Pulse Resp BP Sys/Stark Pulse Ox Last 24 Hr 97.9 F-101.5 F 89-130 18-24 89-140/55-73 94-99 GEN: NAD, AAOx3 HEENT: NC/AT, EOMI. No facial asymmetry. Normal voice. Supple neck w/ FROM. CV: S1/S2, RRR, no m/r/g LUNG: CTAB, no wheezes, crackles, rales, rhonchi. GI: soft, ndnt, +BS, no guarding, no rebound. No masses. EXTREMITIES: 2+ distal pulses. No LE edema. No obvious deformities of all extremities. SKIN: warm, dry, normal turgor PSYCH: normal mood and affect NEURO: Moving all extremities well. Laboratory Results - last 24 hr 05/31/19 05/31/19 05/31/19 15:13 15:13 15:13 WBC 16.8 H RBC 4.40 Hgb 14.0 Hct 41.8 MCV 95.0 MCH 31.9 MCHC 33.5 RDW 13.3 Plt Count 337 MPV 6.7 L Absolute Neuts (auto) 12.4 H Neutrophils % 73.7 D Lymphocytes % 13.9 D Monocytes % 11.7 H Eosinophils % 0.2 D Basophils % 0.5 Nucleated RBC % 0 ESR PT with INR INR PTT (Actin FS) VBG pH POC VBG pCO2 POC VBG pO2 VBG HCO3 VBG O2 Sat (Samia) VBG Base Excess Sodium 136 Potassium 4.0 Chloride 105 Carbon Dioxide 24 Anion Gap 8 BUN 10.4 Creatinine 0.5 L Est GFR (CKD-EPI)AfAm 134.52 Est GFR (CKD-EPI)NonAf 116.07 Random Glucose 90 Lactic Acid Calcium 8.8 Phosphorus Magnesium Total Bilirubin 0.4 AST 13 L ALT 18 Alkaline Phosphatase 66 Creatine Kinase Troponin I < 0.02 C-Reactive Protein Total Protein 6.7 Albumin 3.3 L Serum , Qual Negative Urine Color Urine Appearance Urine pH Ur Specific [place] Urine Protein Urine Glucose (UA) Urine Ketones Urine Blood Urine Nitrite Urine Bilirubin Urine Urobilinogen Ur Leukocyte Esterase Urine WBC (Auto) Urine RBC (Auto) Urine Casts (Auto) U Pathogenic Cast Auto U Epithel Cells (Auto) Urine Bacteria (Auto) Urine HCG, Qual 05/31/19 05/31/19 05/31/19 15:13 15:13 16:39 WBC RBC Hgb Hct MCV MCH MCHC RDW Plt Count MPV Absolute Neuts (auto) Neutrophils % Lymphocytes % Monocytes % Eosinophils % Basophils % Nucleated RBC % ESR PT with INR INR PTT (Actin FS) VBG pH 7.40 POC VBG pCO2 35.0 L POC VBG pO2 < 49 H VBG HCO3 21.3 L VBG O2 Sat (Samia) 71.3 VBG Base Excess -2.3 L Sodium Potassium Chloride Carbon Dioxide Anion Gap BUN Creatinine Est GFR (CKD-EPI)AfAm Est GFR (CKD-EPI)NonAf Random Glucose Lactic Acid Calcium Phosphorus Magnesium Total Bilirubin AST ALT Alkaline Phosphatase Creatine Kinase Troponin I C-Reactive Protein Total Protein Albumin Serum , Qual Urine Color Yellow Urine Appearance Turbid Urine pH 5.0 Ur Specific [place] 1.012 Urine Protein 2+ H Urine Glucose (UA) Negative Urine Ketones Negative Urine Blood 2+ H Urine Nitrite Negative Urine Bilirubin Negative Urine Urobilinogen 0.2 Ur Leukocyte Esterase 3+ H Urine WBC (Auto) 1435 Urine RBC (Auto) 21 Urine Casts (Auto) 16 U Pathogenic Cast Auto None seen U Epithel Cells (Auto) 4.3 Urine Bacteria (Auto) 3516.8 Urine HCG, Qual Negative 05/31/19 05/31/19 05/31/19 16:43 16:43 16:43 WBC RBC Hgb Hct MCV MCH MCHC RDW Plt Count MPV Absolute Neuts (auto) Neutrophils % Lymphocytes % Monocytes % Eosinophils % Basophils % Nucleated RBC % ESR PT with INR 13.50 H INR 1.14 H PTT (Actin FS) 34.1 VBG pH POC VBG pCO2 POC VBG pO2 VBG HCO3 VBG O2 Sat (Samia) VBG Base Excess Sodium Potassium Chloride Carbon Dioxide Anion Gap BUN Creatinine Est GFR (CKD-EPI)AfAm Est GFR (CKD-EPI)NonAf Random Glucose Lactic Acid 0.9 Calcium Phosphorus Magnesium Total Bilirubin AST ALT Alkaline Phosphatase Creatine Kinase Troponin I C-Reactive Protein Total Protein Albumin Serum , Qual Urine Color Urine Appearance Urine pH Ur Specific [place] Urine Protein Urine Glucose (UA) Urine Ketones Urine Blood Urine Nitrite Urine Bilirubin Urine Urobilinogen Ur Leukocyte Esterase Urine WBC (Auto) Urine RBC (Auto) Urine Casts (Auto) U Pathogenic Cast Auto U Epithel Cells (Auto) Urine Bacteria (Auto) Urine HCG, Qual 05/31/19 05/31/19 06/01/19 19:58 19:58 05:40 WBC 19.2 H RBC 3.99 Hgb 12.8 Hct 38.2 MCV 95.7 MCH 32.1 MCHC 33.5 RDW 13.4 Plt Count 274 MPV 6.7 L Absolute Neuts (auto) 13.4 H Neutrophils % 69.7 Lymphocytes % 18.4 D Monocytes % 10.6 H Eosinophils % 0.7 D Basophils % 0.6 Nucleated RBC % 0 ESR 38 H PT with INR INR PTT (Actin FS) VBG pH POC VBG pCO2 POC VBG pO2 VBG HCO3 VBG O2 Sat (Samia) VBG Base Excess Sodium Potassium Chloride Carbon Dioxide Anion Gap BUN Creatinine Est GFR (CKD-EPI)AfAm Est GFR (CKD-EPI)NonAf Random Glucose Lactic Acid Calcium Phosphorus Magnesium Total Bilirubin AST ALT Alkaline Phosphatase Creatine Kinase Troponin I C-Reactive Protein 11.9 H Total Protein Albumin Serum , Qual Urine Color Urine Appearance Urine pH Ur Specific [place] Urine Protein Urine Glucose (UA) Urine Ketones Urine Blood Urine Nitrite Urine Bilirubin Urine Urobilinogen Ur Leukocyte Esterase Urine WBC (Auto) Urine RBC (Auto) Urine Casts (Auto) U Pathogenic Cast Auto U Epithel Cells (Auto) Urine Bacteria (Auto) Urine HCG, Qual 06/01/19 06/01/19 06/01/19 05:40 05:40 05:40 WBC RBC Hgb Hct MCV MCH MCHC RDW Plt Count MPV Absolute Neuts (auto) Neutrophils % Lymphocytes % Monocytes % Eosinophils % Basophils % Nucleated RBC % ESR PT with INR INR PTT (Actin FS) VBG pH POC VBG pCO2 POC VBG pO2 VBG HCO3 VBG O2 Sat (Samia) VBG Base Excess Sodium 140 Potassium 3.5 Chloride 111 H Carbon Dioxide 22 Anion Gap 6 L BUN 6.5 L Creatinine 0.4 L Est GFR (CKD-EPI)AfAm 144.77 Est GFR (CKD-EPI)NonAf 124.91 Random Glucose 95 Lactic Acid Calcium 7.7 L Phosphorus 2.8 Magnesium 1.9 Total Bilirubin 0.7 AST 20 ALT 24 Alkaline Phosphatase 67 Creatine Kinase 44 Troponin I < 0.02 C-Reactive Protein 15.0 H Total Protein 5.7 L Albumin 2.7 L Serum , Qual Urine Color Urine Appearance Urine pH Ur Specific [place] Urine Protein Urine Glucose (UA) Urine Ketones Urine Blood Urine Nitrite Urine Bilirubin Urine Urobilinogen Ur Leukocyte Esterase Urine WBC (Auto) Urine RBC (Auto) Urine Casts (Auto) U Pathogenic Cast Auto U Epithel Cells (Auto) Urine Bacteria (Auto) Urine HCG, Qual Active Medications Generic Name Dose Route Start Last Admin Trade Name Freq PRN Reason Stop Dose Admin Acetaminophen 650 mg 05/31/19 23:29 Tylenol - PO Q4H PRN PAIN OR FEVER Albuterol Sulfate 1 amp 05/31/19 22:39 Ventolin 0.083% Nebulizer Soln - NEB Q6H PRN SHORT OF BREATH/WHEEZING Chlorhexidine Gluconate 1 applic 06/01/19 22:00 Hibiclens For Decolonization - TP HS [facility] Heparin Sodium (Porcine) 5,000 unit 06/01/19 06:00 Heparin - SQ TID [facility] Sodium Chloride 1,000 mls @ 100 mls/hr 05/31/19 22:45 06/01/19 00:05 Normal Saline - IV 100 mls/hr ASDIR [facility] Administration Mupirocin 1 applic 06/01/19 10:00 Bactroban Ointment (For Decolonization) - NS 06/06/19 09:59 BID [facility] Vancomycin HCl 1,000 mg 06/01/19 10:00 Vancomycin (Pre-Docked) IVPB DAILY [facility] Protocol Vancomycin HCl 1,000 mg 06/01/19 20:00 Vancomycin (Pre-Docked) IVPB 06/01/19 20:01 [email or web address] [facility] Protocol ASSESSMENT/PLAN: 48F no significant pmh p/w f/c, dysuria, left LBP. Admitted to ICU for sepsis 2/ 2 pyelonephritis. CTA found L subclavian occlusion. NEURO - neurologically intact CARD - L subclavian occlusion - vascular recs appreciated - no acute surgical interventions needed enedina - echo; inconclusive bedside echo- possible mitral valve vegetations - avoid BP reads on L arm RENAL - B/L acute renal infarct vs pyelonephritis, Sepsis likely 2/2 L pyelonephritis - Renal recs appreciated - f/u vasculitis workup FENGI - NS 100mL/h - Regular diet as tolerated ENDO HEME - heme-onc consulted ID - Sepsis likely 2/2 pyelonephritis - Leukocytosis, febrile , tachycardia, L CVA tenderness - UA + LEs - Lactate wnl - ID (Dr. Beyer) recs appreciated - Empiric vanc and zosyn - f/u BCx, UC - Tylenol PRN fever/pain PPX - HSQ DISPO: m/s Visit type - Emergency Visit Emergency Visit: Yes ED Registration Date: 05/31/19 Care time: The patient presented to the Emergency Department on the above date and was hospitalized for further evaluation of their emergent condition. - New Patient This patient is new to me today: Yes Date on this admission: 06/01/19 - Critical Care Critical Care patient: Yes Total Critical Care Time (in minutes): 20
--- NOTE | 2019-06-01 08:43 | PN ---
Teaching Attending Note ATTENDING PHYSICIAN STATEMENT I saw and evaluated the patient. I reviewed the resident's note and discussed the case with the resident. I agree with the resident's findings and plan as documented. SUBJECTIVE: OBJECTIVE: ASSESSMENT AND PLAN:
[2019-06-01] MEDS: MUPIROCIN 2% TOPICAL OINTMENT FOR DECOLONIZATION NS SCH ×2 (09:34→21:27)
[2019-06-01] MEDS: HEPARIN NA (PORCINE) 5,000 UNITS/ML 1ML VIAL SQ SCH ×3 (09:34→21:27)
--- NOTE | 2019-06-01 09:43 | CONSULT ---
- Consultation REQUESTING PROVIDER: CONSULT REQUEST: We have been asked to surgically evaluate this patient for left subclavian artery occlusion. PCP:Thee Gomez MD HISTORY OF PRESENT ILLNESS: 48 y/o F, smoker (1/2ppd since teens), with no significant PMHx presented to ED w/ dysuria/flank pain now a/w urosepsis. Vascular consulted for L subclavian occlusion found on CT obtained after gross discrepancies in bp were noted. Pt is L hand dominant. 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 States she uses her LUE without issue. Denies any sxs of LUE pain with use, dizziness with use of her arm, changes to vision. Is unaware of bp discrepancies between arms. Denies any le claudication. PMHx: denies PSHx: right hand surgery for infection (Dr Estes, 2018) Home Medications Medication Instructions Recorded NK [No Known Home Medication] 05/31/19 Allergies Allergy/AdvReac Type Severity Reaction Status Date / Time No Known Allergies Allergy Verified 05/31/19 12:17 REVIEW OF SYSTEMS: CARDIOVASCULAR: Absent: chest pain, syncope, palpitations RESPIRATORY: Absent: cough, shortness of breath GENITOURINARY: + dysuria, frequency, flank pain MUSCULOSKELETAL: Absent: myalgia, arthralgia, joint swelling, back pain, neck pain NEUROLOGIC: Absent: headache, focal weakness, paresthesias, dizziness, unsteady gait PHYSICAL EXAM: GENERAL: Awake, alert, and fully oriented, in no acute distress. HEAD: Normal with no signs of trauma. UPPER EXTREMITIES: RUE with 2+ radial/ulnar pulses, LUE with 1+ radial/ulnar pulses, b/l hands warm, no wounds/ulcers present. 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 Cap refill <2 seconds. No peripheral edema. BP LUE systolic 73, RUE systolic 112 LOWER EXTREMITIES: 2+ R dp/pt, L ?1+ dp/pt, b/l feet warm, well-perfused. No calf tenderness. No peripheral edema. No wounds. Vital Signs Temperature 98.4 F 06/01/19 06:44 Pulse Rate 97 H 06/01/19 06:44 Respiratory Rate 18 06/01/19 06:44 Blood Pressure 107/72 06/01/19 06:44 O2 Sat by Pulse Oximetry (%) 99 06/01/19 01:00 Lab Results WBC 19.2 K/mm3 (4.0-10.0) H 06/01/19 05:40 RBC 3.99 M/mm3 (3.60-5.2) 06/01/19 05:40 Hgb 12.8 GM/dL (10.7-15.3) 06/01/19 05:40 Hct 38.2 % (32.4-45.2) 06/01/19 05:40 MCV 95.7 fl (80-96) 06/01/19 05:40 MCHC 33.5 g/dl (32.0-36.0) 06/01/19 05:40 RDW 13.4 % (11.6-15.6) 06/01/19 05:40 Plt Count 274 K/MM3 (134-434) 06/01/19 05:40 Sodium 140 mmol/L (136-145) 06/01/19 05:40 Potassium 3.5 mmol/L (3.5-5.1) 06/01/19 05:40 Chloride 111 mmol/L (98-107) H 06/01/19 05:40 Carbon Dioxide 22 mmol/L (21-32) 06/01/19 05:40 Anion Gap 6 MMOL/L (8-16) L 06/01/19 05:40 BUN 6.5 mg/dL (7-18) L 06/01/19 05:40 Creatinine 0.4 mg/dL (0.55-1.3) L 06/01/19 05:40 Random Glucose 95 mg/dL (74-106) 06/01/19 05:40 Calcium 7.7 mg/dL (8.5-10.1) L 06/01/19 05:40 INR 1.14 (0.83-1.09) H 05/31/19 16:43 CTA chest (05/31/19): The thoracoabdominal aorta demonstrates no evidence of aneurysm or dissection. Complete occlusion vs near complete occlusion of the left subclavian artery is noted. A/P: 48 y/o F, smoker (1/2ppd since teens), with no significant PMHx presented to ED w/ dysuria/flank pain now a/w urosepsis. Vascular consulted for L subclavian occlusion found on CT obtained after gross discrepancies in bp were noted. L systolic bp 72, R 112 on exam Asx per pt -No acute vascular intervention at this time, occlusion likely chronic in nature -Pt should follow up in the office with Dr Loaiza upon discharge for a carotid duplex to evaluate her vertebral arteries and discuss plan (elective intervention vs conservative management) d/w attending Dr Loaiza
[2019-06-01] MEDS ORDERED: VANCOMYCIN 1 GM in D5W (PRE-DOCKED) 1,000 MG/250 ML IVPB SCH ×3 (10:00→21:30)
--- NOTE | 2019-06-01 13:10 | CON.ID ---
Consult Consult Specialty:: infectious diseases Referred by:: Reason for Consultation:: fever,leukocytosis,dysuria - History of Present Illness Chief Complaint: fever,b/l flank pain,dysuria History of Present Illness: 48 year old female with no significant PMH. admitted with complaints of burning micturation and increased urinary frequency for 3 days associated with fevers, chills, and B/L flank pain f. She states that she feels the need to urinate every few minutes. The flank pain initially began on her left side but eventually spread to the right flank as well, sudden in onset, described as a burning pain, constant in nature but intermittent in intensity patient also spiked high grade fever and also had discrepancy in her bp reading and patient admitted to icu and was worked up and found occulsion of subclavian she was given multiple different abx patient mentions that she feels better now and flank pain has become much better she also has injury to the hand but does not look infected bp has been remaining stable patient also is a chronic smoker and now she is feeling hot - History Source History Provided By: Patient, Medical Record Limitations to Obtaining History: Language Barrier - Past Medical History ...LMP: 05/18/19 ...: No - Alcohol/Substance Use Hx Alcohol Use: No - Smoking History Smoking history: Current every day smoker Have you smoked in the past 12 months: Yes Aproximately how many cigarettes per day: 10 - Social History ADL: Independent History of Recent Travel: Yes Home Medications - Allergies Allergies/Adverse Reactions: Allergies Allergy/AdvReac Type Severity Reaction Status Date / Time No Known Allergies Allergy Verified 05/31/19 12:17 - Home Medications Home Medications: Ambulatory Orders NK [No Known Home Medication] 05/31/19 Review of Systems - Review of Systems Constitutional: reports: Chills, Fever Eyes: reports: No Symptoms HENT: reports: No Symptoms Neck: reports: No Symptoms Cardiovascular: reports: No Symptoms Respiratory: reports: No Symptoms Gastrointestinal: reports: No Symptoms Genitourinary: reports: Flank Pain, Frequency, Other Integumentary: reports: No Symptoms Endocrine: reports: No Symptoms Hematology/Lymphatic: reports: No Symptoms Psychiatric: reports: No Symptoms Physical Exam Vital Signs: Vital Signs Temperature 99 F 06/01/19 09:00 Pulse Rate 99 H 06/01/19 11:00 Respiratory Rate 18 06/01/19 11:00 Blood Pressure 125/62 06/01/19 11:00 O2 Sat by Pulse Oximetry (%) 99 06/01/19 09:00 Constitutional: Yes: Calm, Other Eyes: Yes: Conjunctiva Clear Cardiovascular: Yes: Regular Rate and Rhythm Respiratory: Yes: Regular, CTA Bilaterally Gastrointestinal: Yes: Normal Bowel Sounds, Soft Musculoskeletal: Yes: WNL Extremities: Yes: WNL Neurological: Yes: Alert, Oriented Psychiatric: Yes: Alert, Oriented Labs: CBC, BMP 06/01/19 05:40 06/01/19 05:40 Imaging - Results Chest X-ray: Report Reviewed, Image Reviewed Cat Scan: Report Reviewed, Image Reviewed Assessment/Plan Sepsis Left pyelonephritis Left Subclavian occlusion B/L acute renal infarct vs pyelonephritis Left adnexal cyst after looking at the imaging studies and the history i am worried if she has dveloped infarction of the kidney plan will start patient on zosyn monitor fever if continues to spike will change dosing rest as per icu await for all cx reports very close watch monitor wbc cc 45 min
--- NOTE | 2019-06-01 13:15 | PN ---
Teaching Attending Note Name of Resident: Ta Darden ATTENDING PHYSICIAN STATEMENT I saw and evaluated the patient. I reviewed the resident's note and discussed the case with the resident. I agree with the resident's findings and plan as documented. SUBJECTIVE: Patient seen and examined in the ICU. Awake and alert. No CP or SOB. Some dry cough. Urinary symptoms are improving. Intake & Output 05/29/19 05/30/19 05/31/19 06/01/19 23:59 23:59 23:59 23:59 Intake Total 500 Balance 500 Weight 165 lb 152 lb 6.4 oz Last Vital Signs Temp Pulse Resp BP Pulse Ox 99 F 99 H 18 125/62 99 06/01/19 09:00 06/01/19 11:00 06/01/19 11:00 06/01/19 11:00 06/01/19 09:00 Active Medications Acetaminophen (Tylenol -) 650 mg PO Q4H PRN PRN Reason: PAIN OR FEVER Albuterol Sulfate (Ventolin 0.083% Nebulizer Soln -) 1 amp NEB Q6H PRN PRN Reason: SHORT OF BREATH/WHEEZING Chlorhexidine Gluconate (Hibiclens For Decolonization -) 1 applic TP HS [facility] Heparin Sodium (Porcine) (Heparin -) 5,000 unit SQ TID [facility] Last Admin: 06/01/19 09:34 Dose: 5,000 unit Sodium Chloride (Normal Saline -) 1,000 mls @ 100 mls/hr IV ASDIR [facility] Last Admin: 06/01/19 00:05 Dose: 100 mls/hr Mupirocin (Bactroban Ointment (For Decolonization) -) 1 applic NS BID [facility] Stop: 06/06/19 09:59 Last Admin: 06/01/19 09:34 Dose: 1 applic Vancomycin HCl (Vancomycin (Pre-Docked)) 1,000 mg IVPB DAILY [facility]; Protocol Vancomycin HCl (Vancomycin (Pre-Docked)) 1,000 mg IVPB DAILY@2000 [facility]; Protocol Stop: 06/01/19 20:01 PHYSICAL EXAMINATION GENERAL: Awake, alert, and fully oriented, in no acute distress. NECK: supple without lymphadenopathy. (-) JVD LUNGS: No wheezing, clear. No accessory muscle use. HEART: Normal S1 and S2 without murmur, rub or gallop. ABDOMEN: Soft, nontender, not distended, normoactive bowel sounds, no guarding, no rebound, no masses. MUSCULOSKELETAL: Normal range of motion at all joints. No bony deformities or tenderness. L CVA tenderness. UPPER EXTREMITIES: Diminished Pulse LE LOWER EXTREMITIES: 2+ pulses, warm, well-perfused. No calf tenderness. No peripheral edema. NEUROLOGICAL: Non-focal PSYCHIATRIC: Cooperative. Good eye contact. Appropriate mood and affect. SKIN: Warm, dry, normal turgor, no rashes or lesions noted. Laboratory Results - last 24 hr 05/31/19 05/31/19 05/31/19 15:13 15:13 15:13 WBC 16.8 H RBC 4.40 Hgb 14.0 Hct 41.8 MCV 95.0 MCH 31.9 MCHC 33.5 RDW 13.3 Plt Count 337 MPV 6.7 L Absolute Neuts (auto) 12.4 H Neutrophils % 73.7 D Lymphocytes % 13.9 D Monocytes % 11.7 H Eosinophils % 0.2 D Basophils % 0.5 Nucleated RBC % 0 ESR PT with INR INR PTT (Actin FS) VBG pH POC VBG pCO2 POC VBG pO2 VBG HCO3 VBG O2 Sat (Samia) VBG Base Excess Sodium 136 Potassium 4.0 Chloride 105 Carbon Dioxide 24 Anion Gap 8 BUN 10.4 Creatinine 0.5 L Est GFR (CKD-EPI)AfAm 134.52 Est GFR (CKD-EPI)NonAf 116.07 Random Glucose 90 Lactic Acid Calcium 8.8 Phosphorus Magnesium Total Bilirubin 0.4 AST 13 L ALT 18 Alkaline Phosphatase 66 Creatine Kinase Troponin I < 0.02 C-Reactive Protein Total Protein 6.7 Albumin 3.3 L Serum , Qual Negative Urine Color Urine Appearance Urine pH Ur Specific [place] Urine Protein Urine Glucose (UA) Urine Ketones Urine Blood Urine Nitrite Urine Bilirubin Urine Urobilinogen Ur Leukocyte Esterase Urine WBC (Auto) Urine RBC (Auto) Urine Casts (Auto) U Pathogenic Cast Auto U Epithel Cells (Auto) Urine Bacteria (Auto) Urine HCG, Qual 05/31/19 05/31/19 05/31/19 15:13 15:13 16:39 WBC RBC Hgb Hct MCV MCH MCHC RDW Plt Count MPV Absolute Neuts (auto) Neutrophils % Lymphocytes % Monocytes % Eosinophils % Basophils % Nucleated RBC % ESR PT with INR INR PTT (Actin FS) VBG pH 7.40 POC VBG pCO2 35.0 L POC VBG pO2 < 49 H VBG HCO3 21.3 L VBG O2 Sat (Samia) 71.3 VBG Base Excess -2.3 L Sodium Potassium Chloride Carbon Dioxide Anion Gap BUN Creatinine Est GFR (CKD-EPI)AfAm Est GFR (CKD-EPI)NonAf Random Glucose Lactic Acid Calcium Phosphorus Magnesium Total Bilirubin AST ALT Alkaline Phosphatase Creatine Kinase Troponin I C-Reactive Protein Total Protein Albumin Serum , Qual Urine Color Yellow Urine Appearance Turbid Urine pH 5.0 Ur Specific [place] 1.012 Urine Protein 2+ H Urine Glucose (UA) Negative Urine Ketones Negative Urine Blood 2+ H Urine Nitrite Negative Urine Bilirubin Negative Urine Urobilinogen 0.2 Ur Leukocyte Esterase 3+ H Urine WBC (Auto) 1435 Urine RBC (Auto) 21 Urine Casts (Auto) 16 U Pathogenic Cast Auto None seen U Epithel Cells (Auto) 4.3 Urine Bacteria (Auto) 3516.8 Urine HCG, Qual Negative 05/31/19 05/31/19 05/31/19 16:43 16:43 16:43 WBC RBC Hgb Hct MCV MCH MCHC RDW Plt Count MPV Absolute Neuts (auto) Neutrophils % Lymphocytes % Monocytes % Eosinophils % Basophils % Nucleated RBC % ESR PT with INR 13.50 H INR 1.14 H PTT (Actin FS) 34.1 VBG pH POC VBG pCO2 POC VBG pO2 VBG HCO3 VBG O2 Sat (Samia) VBG Base Excess Sodium Potassium Chloride Carbon Dioxide Anion Gap BUN Creatinine Est GFR (CKD-EPI)AfAm Est GFR (CKD-EPI)NonAf Random Glucose Lactic Acid 0.9 Calcium Phosphorus Magnesium Total Bilirubin AST ALT Alkaline Phosphatase Creatine Kinase Troponin I C-Reactive Protein Total Protein Albumin Serum , Qual Urine Color Urine Appearance Urine pH Ur Specific [place] Urine Protein Urine Glucose (UA) Urine Ketones Urine Blood Urine Nitrite Urine Bilirubin Urine Urobilinogen Ur Leukocyte Esterase Urine WBC (Auto) Urine RBC (Auto) Urine Casts (Auto) U Pathogenic Cast Auto U Epithel Cells (Auto) Urine Bacteria (Auto) Urine HCG, Qual 05/31/19 05/31/19 06/01/19 19:58 19:58 05:40 WBC 19.2 H RBC 3.99 Hgb 12.8 Hct 38.2 MCV 95.7 MCH 32.1 MCHC 33.5 RDW 13.4 Plt Count 274 MPV 6.7 L Absolute Neuts (auto) 13.4 H Neutrophils % 69.7 Lymphocytes % 18.4 D Monocytes % 10.6 H Eosinophils % 0.7 D Basophils % 0.6 Nucleated RBC % 0 ESR 38 H PT with INR INR PTT (Actin FS) VBG pH POC VBG pCO2 POC VBG pO2 VBG HCO3 VBG O2 Sat (Samia) VBG Base Excess Sodium Potassium Chloride Carbon Dioxide Anion Gap BUN Creatinine Est GFR (CKD-EPI)AfAm Est GFR (CKD-EPI)NonAf Random Glucose Lactic Acid Calcium Phosphorus Magnesium Total Bilirubin AST ALT Alkaline Phosphatase Creatine Kinase Troponin I C-Reactive Protein 11.9 H Total Protein Albumin Serum , Qual Urine Color Urine Appearance Urine pH Ur Specific [place] Urine Protein Urine Glucose (UA) Urine Ketones Urine Blood Urine Nitrite Urine Bilirubin Urine Urobilinogen Ur Leukocyte Esterase Urine WBC (Auto) Urine RBC (Auto) Urine Casts (Auto) U Pathogenic Cast Auto U Epithel Cells (Auto) Urine Bacteria (Auto) Urine HCG, Qual 06/01/19 06/01/19 06/01/19 05:40 05:40 05:40 WBC RBC Hgb Hct MCV MCH MCHC RDW Plt Count MPV Absolute Neuts (auto) Neutrophils % Lymphocytes % Monocytes % Eosinophils % Basophils % Nucleated RBC % ESR 38 H PT with INR INR PTT (Actin FS) VBG pH POC VBG pCO2 POC VBG pO2 VBG HCO3 VBG O2 Sat (Samia) VBG Base Excess Sodium 140 Potassium 3.5 Chloride 111 H Carbon Dioxide 22 Anion Gap 6 L BUN 6.5 L Creatinine 0.4 L Est GFR (CKD-EPI)AfAm 144.77 Est GFR (CKD-EPI)NonAf 124.91 Random Glucose 95 Lactic Acid Calcium 7.7 L Phosphorus 2.8 Magnesium 1.9 Total Bilirubin 0.7 AST 20 ALT 24 Alkaline Phosphatase 67 Creatine Kinase Troponin I C-Reactive Protein 15.0 H Total Protein 5.7 L Albumin 2.7 L Serum , Qual Urine Color Urine Appearance Urine pH Ur Specific [place] Urine Protein Urine Glucose (UA) Urine Ketones Urine Blood Urine Nitrite Urine Bilirubin Urine Urobilinogen Ur Leukocyte Esterase Urine WBC (Auto) Urine RBC (Auto) Urine Casts (Auto) U Pathogenic Cast Auto U Epithel Cells (Auto) Urine Bacteria (Auto) Urine HCG, Qual 06/01/19 05:40 WBC RBC Hgb Hct MCV MCH MCHC RDW Plt Count MPV Absolute Neuts (auto) Neutrophils % Lymphocytes % Monocytes % Eosinophils % Basophils % Nucleated RBC % ESR PT with INR INR PTT (Actin FS) VBG pH POC VBG pCO2 POC VBG pO2 VBG HCO3 VBG O2 Sat (Samia) VBG Base Excess Sodium Potassium Chloride Carbon Dioxide Anion Gap BUN Creatinine Est GFR (CKD-EPI)AfAm Est GFR (CKD-EPI)NonAf Random Glucose Lactic Acid Calcium Phosphorus Magnesium Total Bilirubin AST ALT Alkaline Phosphatase Creatine Kinase 44 Troponin I < 0.02 C-Reactive Protein Total Protein Albumin Serum , Qual Urine Color Urine Appearance Urine pH Ur Specific [place] Urine Protein Urine Glucose (UA) Urine Ketones Urine Blood Urine Nitrite Urine Bilirubin Urine Urobilinogen Ur Leukocyte Esterase Urine WBC (Auto) Urine RBC (Auto) Urine Casts (Auto) U Pathogenic Cast Auto U Epithel Cells (Auto) Urine Bacteria (Auto) Urine HCG, Qual ASSESSMENT/PLAN: Resolving Sepsis due to a source Left pyelonephritis Left Subclavian occlusion B/L acute renal infarct vs pyelonephritis Left adnexal cyst ABX coverage VTE prophylaxis O2 as needed Check lipids Noted Vascular consult PO as tolerated Avoid measurements on Left arm OOB to chair Floor Dr Montes De Oca
--- NOTE | 2019-06-01 13:16 | ECHO ---
Name: MI ANAYA Exam:Adult Echocardiogram Study Date: 06/01/2019 11:34 AM Age: 48 yrs Reason For Study: poss endocarditis Height: 66 in Weight: 165 lb BSA: 1.8 m2 MMode/2D Measurements & Calculations IVSd: 0.74 cm Ao root diam: 2.8 cm LVIDd: 4.9 cm LA dimension: 2.9 cm LVIDs: 3.9 cm LVPWd: 1.0 cm EDV(Teich): 115.0 ml LVOT diam: 2.0 cm ESV(Teich): 64.3 ml LAV (MOD-bp): 43.0 ml Doppler Measurements & Calculations MV E max te: 114.0 cm/sec Ao V2 max: 144.0 cm/sec MV A max te: 103.0 cm/sec Ao max P.3 mmHg MV E/A: 1.1 MV dec time: 0.07 sec TRACEY(V,D): 2.0 cm2 LV V1 max P.2 mmHg TR max te: 235.0 cm/sec LV V1 max: 89.7 cm/sec TR max P.1 mmHg PA V2 max: 122.0 cm/sec Med Peak E' Te: 7.9 cm/sec PA max P.0 mmHg Med E/e': 14.4 Lat Peak E' Te: 14.7 cm/sec Lat E/e': 7.8 Left Ventricle Left ventricular systolic function is normal. Ejection Fraction = 55-60%. Right Ventricle The right ventricle is normal in size and function. Atria Normal left and right atrial size and function. Mitral Valve There is mild mitral valve thickening. There is mild mitral annular calcification. There is no mitral valve stenosis. There is mild mitral regurgitation. Tricuspid Valve The tricuspid valve is not well visualized, but is grossly normal. There is mild tricuspid regurgitat ion. Right ventricular systolic pressure is normal. Aortic Valve The aortic valve is normal in structure and function. No hemodynamically significant valvular aortic stenosis. No aortic regurgitation is present. Pulmonic Valve The pulmonic valve is not well visualized. Great Vessels The aortic root is normal size. Pericardium/Pleura There is no pericardial effusion. Interpretation Summary Would consider a transesophageal echocardiogram if clinically indicated. Left ventricular systolic fu nction is normal. Ejection Fraction = 55-60%. There is mild mitral valve thickening. There is mild mitral regurgitation. The tricuspid valve is not well visualized, but is grossly normal. There is mild tricuspid regurgitation. Right ventricular systolic pressure is normal. The pulmonic valve is not well visualized. There is no pericardial effusion. MD Low *Hedy 06/01/2019 01:15 PM
[2019-06-01] MEDS: PIPERACILLIN/TAZOB 3.375 GM 3.375 GM in DEXTROSE 5%-WATER - 50 ML IVPB SCH ×2 (13:58→17:12)
--- NOTE | 2019-06-01 14:01 | CONSULT ---
Consultation: Hematology/Oncology Consultation REQUESTING PROVIDER: Dr. Wilson CONSULT REQUEST: We have been asked to medically evaluate this patient for L subclavian occlusion HISTORY OF PRESENT ILLNESS: Pleasant 48 year old, Azerbaijani-speaking female with no significant past medical history presented to the hospital for several days of dysuria, frequency and 1 day of bilateral flank pain. Patient is admitted for the treatment of sepsis 2/ 2 pyelonephritis. 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 She states that she has never been told that she had this in the past. Patient is left-handed. She denies any current symptoms in her left arm, however she does report that when she does laborious tasks (washing dishes, folding laundry, etc...) she feels paresthesias in her left arm, hand and fingers both anteriorly and posteriorly. Denies pain, swelling or feeling that her arm is cold. Currently reports mild dysuria, and denies chest pain, shortness of breath , nausea, vomiting, diarrhea, headache, blurry vision, double vision. Patient has been a chronic smoker for many years. She refuses to overtly tell me how much she smoked and for how long, but states that she smoked for many years on and off and around 1ppd. Allergies: none known Smoking: lifelong smoker for many years, around 1/2 - 1 ppd Alcohol: denies Drugs: denies OCP use: denies Family History: no family history of bleeding or clotting disorders, no first degree family history of cancers REVIEW OF SYSTEMS: CONSTITUTIONAL: Absent: fever, chills, diaphoresis, generalized weakness, malaise, loss of appetite, weight change HEENT: Absent: rhinorrhea, nasal congestion, throat pain, throat swelling, difficulty swallowing, mouth swelling, ear pain, eye pain, visual changes CARDIOVASCULAR: Absent: chest pain, syncope, palpitations, irregular heart rate, lightheadedness , peripheral edema RESPIRATORY: Absent: cough, shortness of breath, dyspnea with exertion, orthopnea, wheezing, stridor, hemoptysis GASTROINTESTINAL: Absent: abdominal pain, abdominal distension, nausea, vomiting, diarrhea, constipation, melena, hematochezia GENITOURINARY: Absent: dysuria, frequency, urgency, hesitancy, hematuria, flank pain, genital pain MUSCULOSKELETAL: Absent: myalgia, arthralgia, joint swelling, back pain, neck pain SKIN: Absent: rash, itching, pallor HEMATOLOGIC/IMMUNOLOGIC: Absent: easy bleeding, easy bruising, lymphadenopathy, frequent infections ENDOCRINE: Absent: unexplained weight gain, unexplained weight loss, heat intolerance, cold intolerance NEUROLOGIC: Absent: headache, focal weakness or paresthesias, dizziness, unsteady gait, seizure, mental status changes, bladder or bowel incontinence PSYCHIATRIC: Absent: anxiety, depression, suicidal or homicidal ideation, hallucinations. PHYSICAL EXAMINATION Vital Signs - 24 hr 05/31/19 05/31/19 06/01/19 15:35 16:04 00:27 Temperature 98.0 F 101.5 F H 99.9 F H Pulse Rate Pulse Rate [ 117 H 104 H Left Radial] Respiratory 20 20 Rate Blood Pressure Blood Pressure 89/73 L 105/55 L [Left Arm] O2 Sat by Pulse 94 L 96 Oximetry (%) 06/01/19 06/01/19 06/01/19 01:00 03:00 05:00 Temperature 98.0 F 97.9 F 98.4 F Pulse Rate 99 H 89 96 H Pulse Rate [ Left Radial] Respiratory 18 21 H 24 H Rate Blood Pressure 108/56 L 109/61 119/67 Blood Pressure [Left Arm] O2 Sat by Pulse 99 Oximetry (%) 06/01/19 06/01/19 06/01/19 06:44 09:00 11:00 Temperature 98.4 F 99 F Pulse Rate 97 H 97 H 99 H Pulse Rate [ Left Radial] Respiratory 18 18 18 Rate Blood Pressure 107/72 129/67 125/62 Blood Pressure [Left Arm] O2 Sat by Pulse 99 Oximetry (%) GENERAL: A&Ox3, no acute distress EYES: PERRLA, EOMI ENT: Moist mucus membranes NECK: No JVD, bilateral carotid bruits auscultated, worse on right BREAST: no masses or nodules palpated LUNGS: CTA, no wheezes HEART: RRR, no murmurs ABDOMEN: Soft, nontender, BS present MUSCULOSKELETAL: No CVA Tenderness UPPER EXTREMITIES: R arm pulses intact, warm; L arm no radial pulse or ulnar pulse palpated, brachial also not palpated. L arm is warm and appears well- perfused LOWER EXTREMITIES: b/l dorsalis pedis pulses diminished, 2+ posterior tibial pulses palpated NEUROLOGICAL: Cranial nerves II-XII intact. No focal deficits Laboratory Results - last 24 hr 05/31/19 05/31/19 05/31/19 15:13 15:13 15:13 WBC 16.8 H RBC 4.40 Hgb 14.0 Hct 41.8 MCV 95.0 MCH 31.9 MCHC 33.5 RDW 13.3 Plt Count 337 MPV 6.7 L Absolute Neuts (auto) 12.4 H Neutrophils % 73.7 D Lymphocytes % 13.9 D Monocytes % 11.7 H Eosinophils % 0.2 D Basophils % 0.5 Nucleated RBC % 0 ESR PT with INR INR PTT (Actin FS) VBG pH POC VBG pCO2 POC VBG pO2 VBG HCO3 VBG O2 Sat (Samia) VBG Base Excess Sodium 136 Potassium 4.0 Chloride 105 Carbon Dioxide 24 Anion Gap 8 BUN 10.4 Creatinine 0.5 L Est GFR (CKD-EPI)AfAm 134.52 Est GFR (CKD-EPI)NonAf 116.07 Random Glucose 90 Lactic Acid Calcium 8.8 Phosphorus Magnesium Total Bilirubin 0.4 AST 13 L ALT 18 Alkaline Phosphatase 66 Creatine Kinase Troponin I < 0.02 C-Reactive Protein Total Protein 6.7 Albumin 3.3 L Serum , Qual Negative Urine Color Urine Appearance Urine pH Ur Specific [place] Urine Protein Urine Glucose (UA) Urine Ketones Urine Blood Urine Nitrite Urine Bilirubin Urine Urobilinogen Ur Leukocyte Esterase Urine WBC (Auto) Urine RBC (Auto) Urine Casts (Auto) U Pathogenic Cast Auto U Epithel Cells (Auto) Urine Bacteria (Auto) Urine HCG, Qual 05/31/19 05/31/19 05/31/19 15:13 15:13 16:39 WBC RBC Hgb Hct MCV MCH MCHC RDW Plt Count MPV Absolute Neuts (auto) Neutrophils % Lymphocytes % Monocytes % Eosinophils % Basophils % Nucleated RBC % ESR PT with INR INR PTT (Actin FS) VBG pH 7.40 POC VBG pCO2 35.0 L POC VBG pO2 < 49 H VBG HCO3 21.3 L VBG O2 Sat (Samia) 71.3 VBG Base Excess -2.3 L Sodium Potassium Chloride Carbon Dioxide Anion Gap BUN Creatinine Est GFR (CKD-EPI)AfAm Est GFR (CKD-EPI)NonAf Random Glucose Lactic Acid Calcium Phosphorus Magnesium Total Bilirubin AST ALT Alkaline Phosphatase Creatine Kinase Troponin I C-Reactive Protein Total Protein Albumin Serum , Qual Urine Color Yellow Urine Appearance Turbid Urine pH 5.0 Ur Specific [place] 1.012 Urine Protein 2+ H Urine Glucose (UA) Negative Urine Ketones Negative Urine Blood 2+ H Urine Nitrite Negative Urine Bilirubin Negative Urine Urobilinogen 0.2 Ur Leukocyte Esterase 3+ H Urine WBC (Auto) 1435 Urine RBC (Auto) 21 Urine Casts (Auto) 16 U Pathogenic Cast Auto None seen U Epithel Cells (Auto) 4.3 Urine Bacteria (Auto) 3516.8 Urine HCG, Qual Negative 05/31/19 05/31/19 05/31/19 16:43 16:43 16:43 WBC RBC Hgb Hct MCV MCH MCHC RDW Plt Count MPV Absolute Neuts (auto) Neutrophils % Lymphocytes % Monocytes % Eosinophils % Basophils % Nucleated RBC % ESR PT with INR 13.50 H INR 1.14 H PTT (Actin FS) 34.1 VBG pH POC VBG pCO2 POC VBG pO2 VBG HCO3 VBG O2 Sat (Samia) VBG Base Excess Sodium Potassium Chloride Carbon Dioxide Anion Gap BUN Creatinine Est GFR (CKD-EPI)AfAm Est GFR (CKD-EPI)NonAf Random Glucose Lactic Acid 0.9 Calcium Phosphorus Magnesium Total Bilirubin AST ALT Alkaline Phosphatase Creatine Kinase Troponin I C-Reactive Protein Total Protein Albumin Serum , Qual Urine Color Urine Appearance Urine pH Ur Specific [place] Urine Protein Urine Glucose (UA) Urine Ketones Urine Blood Urine Nitrite Urine Bilirubin Urine Urobilinogen Ur Leukocyte Esterase Urine WBC (Auto) Urine RBC (Auto) Urine Casts (Auto) U Pathogenic Cast Auto U Epithel Cells (Auto) Urine Bacteria (Auto) Urine HCG, Qual 05/31/19 05/31/19 06/01/19 19:58 19:58 05:40 WBC 19.2 H RBC 3.99 Hgb 12.8 Hct 38.2 MCV 95.7 MCH 32.1 MCHC 33.5 RDW 13.4 Plt Count 274 MPV 6.7 L Absolute Neuts (auto) 13.4 H Neutrophils % 69.7 Lymphocytes % 18.4 D Monocytes % 10.6 H Eosinophils % 0.7 D Basophils % 0.6 Nucleated RBC % 0 ESR 38 H PT with INR INR PTT (Actin FS) VBG pH POC VBG pCO2 POC VBG pO2 VBG HCO3 VBG O2 Sat (Samia) VBG Base Excess Sodium Potassium Chloride Carbon Dioxide Anion Gap BUN Creatinine Est GFR (CKD-EPI)AfAm Est GFR (CKD-EPI)NonAf Random Glucose Lactic Acid Calcium Phosphorus Magnesium Total Bilirubin AST ALT Alkaline Phosphatase Creatine Kinase Troponin I C-Reactive Protein 11.9 H Total Protein Albumin Serum , Qual Urine Color Urine Appearance Urine pH Ur Specific [place] Urine Protein Urine Glucose (UA) Urine Ketones Urine Blood Urine Nitrite Urine Bilirubin Urine Urobilinogen Ur Leukocyte Esterase Urine WBC (Auto) Urine RBC (Auto) Urine Casts (Auto) U Pathogenic Cast Auto U Epithel Cells (Auto) Urine Bacteria (Auto) Urine HCG, Qual 06/01/19 06/01/19 06/01/19 05:40 05:40 05:40 WBC RBC Hgb Hct MCV MCH MCHC RDW Plt Count MPV Absolute Neuts (auto) Neutrophils % Lymphocytes % Monocytes % Eosinophils % Basophils % Nucleated RBC % ESR 38 H PT with INR INR PTT (Actin FS) VBG pH POC VBG pCO2 POC VBG pO2 VBG HCO3 VBG O2 Sat (Samia) VBG Base Excess Sodium 140 Potassium 3.5 Chloride 111 H Carbon Dioxide 22 Anion Gap 6 L BUN 6.5 L Creatinine 0.4 L Est GFR (CKD-EPI)AfAm 144.77 Est GFR (CKD-EPI)NonAf 124.91 Random Glucose 95 Lactic Acid Calcium 7.7 L Phosphorus 2.8 Magnesium 1.9 Total Bilirubin 0.7 AST 20 ALT 24 Alkaline Phosphatase 67 Creatine Kinase Troponin I C-Reactive Protein 15.0 H Total Protein 5.7 L Albumin 2.7 L Serum , Qual Urine Color Urine Appearance Urine pH Ur Specific [place] Urine Protein Urine Glucose (UA) Urine Ketones Urine Blood Urine Nitrite Urine Bilirubin Urine Urobilinogen Ur Leukocyte Esterase Urine WBC (Auto) Urine RBC (Auto) Urine Casts (Auto) U Pathogenic Cast Auto U Epithel Cells (Auto) Urine Bacteria (Auto) Urine HCG, Qual 06/01/19 05:40 WBC RBC Hgb Hct MCV MCH MCHC RDW Plt Count MPV Absolute Neuts (auto) Neutrophils % Lymphocytes % Monocytes % Eosinophils % Basophils % Nucleated RBC % ESR PT with INR INR PTT (Actin FS) VBG pH POC VBG pCO2 POC VBG pO2 VBG HCO3 VBG O2 Sat (Samia) VBG Base Excess Sodium Potassium Chloride Carbon Dioxide Anion Gap BUN Creatinine Est GFR (CKD-EPI)AfAm Est GFR (CKD-EPI)NonAf Random Glucose Lactic Acid Calcium Phosphorus Magnesium Total Bilirubin AST ALT Alkaline Phosphatase Creatine Kinase 44 Troponin I < 0.02 C-Reactive Protein Total Protein Albumin Serum , Qual Urine Color Urine Appearance Urine pH Ur Specific [place] Urine Protein Urine Glucose (UA) Urine Ketones Urine Blood Urine Nitrite Urine Bilirubin Urine Urobilinogen Ur Leukocyte Esterase Urine WBC (Auto) Urine RBC (Auto) Urine Casts (Auto) U Pathogenic Cast Auto U Epithel Cells (Auto) Urine Bacteria (Auto) Urine HCG, Qual Active Medications Generic Name Dose Route Start Last Admin Trade Name Freq PRN Reason Stop Dose Admin Acetaminophen 650 mg 05/31/19 23:29 Tylenol - PO Q4H PRN PAIN OR FEVER Albuterol Sulfate 1 amp 05/31/19 22:39 Ventolin 0.083% Nebulizer Soln - NEB Q6H PRN SHORT OF BREATH/WHEEZING Chlorhexidine Gluconate 1 applic 06/01/19 22:00 Hibiclens For Decolonization - TP HS ELBERT Heparin Sodium (Porcine) 5,000 unit 06/01/19 06:00 06/01/19 09:34 Heparin - SQ 5,000 unit TID ELBERT Administration Sodium Chloride 1,000 mls @ 100 mls/hr 05/31/19 22:45 06/01/19 00:05 Normal Saline - IV 100 mls/hr ASDIR ELBERT Administration Piperacillin Sod/Tazobactam 50 mls @ 100 mls/hr 06/01/19 13:15 06/01/19 13:58 Sod 3.375 gm/ Dextrose IVPB 100 mls/hr Q8H-IV ELBERT Administration Protocol Mupirocin 1 applic 06/01/19 10:00 06/01/19 09:34 Bactroban Ointment (For Decolonization) - NS 06/06/19 09:59 1 applic BID ELBERT Administration Vancomycin HCl 1,000 mg 06/01/19 10:00 Vancomycin (Pre-Docked) IVPB DAILY [facility] Protocol Vancomycin HCl 1,000 mg 06/01/19 20:00 Vancomycin (Pre-Docked) IVPB 06/01/19 20:01 [email or web address] [facility] Protocol ASSESSMENT/PLAN: 48 year old, Azerbaijani-speaking female with no significant past medical history presented to the hospital for several days of dysuria, frequency and 1 day of bilateral flank pain and admitted for sepsis 2/2 pyelonephritis, 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 Patient is a chronic smoker, which likely contributed to an indolent and slow occlusion of her L subclavian artery. The severity of occlusion does not correlate with an acute event due to the relative lack of symptoms and adequate left arm perfusion, suggesting that collateral circulation has developed over time to compensate for the decreased subclavian flow. Other disorders, such as vasculitis and thromboembolism are possible, but less likely. -echocardiogram was by and large without significant abnormalities -monitor on telemetry for atrial fibrillation which could suggest embolic nature of disease, however lack of symptoms in the arm lessen this possibility as an acute event -ANCAs, JAMES, other autoimmune tests ordered to assess for vasculitities -carotid ultrasound ordered to assess carotid bruits and potential carotid stenosis -discussed with patient the need to cease smoking or risk limb ischemia -discussed with Dr. Loaiza of vascular surgery, who will evaluate patient for possible surgical revascularization -consider use of aspirin in this patient who is asymptomatic - will have to re- evaluate if patient has severe carotid disease -lipid panel ordered Joao Ponce D.O., PGY-[address] Yip Visit type - Emergency Visit Emergency Visit: No - New Patient This patient is new to me today: Yes Date on this admission: 06/01/19 - Critical Care Critical Care patient: Yes Total Critical Care Time (in minutes): 35 Critical Care Statement: The care of this patient involved high complexity decision making to prevent further life threatening deterioration of the patient 's condition and/or to evaluate & treat vital organ system(s) failure or risk of failure. ATTENDING PHYSICIAN STATEMENT I saw and evaluated the patient. I reviewed the resident's note and discussed the case with the resident. I agree with the resident's findings and plan as documented. SUBJECTIVE: OBJECTIVE: ASSESSMENT AND PLAN:
--- NOTE | 2019-06-01 14:07 | EKG ---
Test Reason : Blood Pressure : / mmHG Vent. Rate : 103 BPM Atrial Rate : 103 BPM P-R Int : 152 ms QRS Dur : 072 ms QT Int : 342 ms P-R-T Axes : 075 077 059 degrees QTc Int : 448 ms SINUS TACHYCARDIA NONSPECIFIC T WAVE ABNORMALITY LEFT ATRIAL ENLARGEMENT ABNORMAL ECG Confirmed by KAREN FUNK MD ([id number]) on 06/01/2019 2:06:54 PM Referred By: Confirmed By:KAREN FUNK MD
[2019-06-01] MEDS: LACTATED RINGERS SOLUTION 1,000 ML/1,000 ML INFUS.BAG IV SCH (15:12)
--- NOTE | 2019-06-01 15:51 | CONSULT ---
Consult Consult Specialty:: Nephrology Reason for Consultation:: uti - History of Present Illness Chief Complaint: fever and left lower quad pain History of Present Illness: Pt is a 48 year old female with no pmhx who presents to the ER with fever and left lower quad pain. She was found to have a UTI. On ct imaging she was found to have left subclavian occlusion and bilateral renal lesions that were suspicious for pyelo vs infarct. She feels that same as yesterday. She denies hematuria. She denies back pain. She has had fever for a few days. She denies dysuria today. She denies medical history. She was admitted for further management. - History Source History Provided By: Patient, Medical Record - Past Medical History ...LMP: 05/18/19 ...: No - Alcohol/Substance Use Hx Alcohol Use: No - Smoking History Smoking history: Current every day smoker Have you smoked in the past 12 months: Yes Aproximately how many cigarettes per day: 10 - Social History ADL: Independent History of Recent Travel: Yes Home Medications - Allergies Allergies/Adverse Reactions: Allergies Allergy/AdvReac Type Severity Reaction Status Date / Time No Known Allergies Allergy Verified 05/31/19 12:17 - Home Medications Home Medications: Ambulatory Orders NK [No Known Home Medication] 05/31/19 Family Disease History - Family Disease History Family History: Denies Review of Systems - Review of Systems Constitutional: reports: Chills, Fever, Malaise Eyes: reports: No Symptoms HENT: reports: No Symptoms Neck: reports: No Symptoms Cardiovascular: reports: No Symptoms Respiratory: reports: No Symptoms Gastrointestinal: reports: Abdominal Pain Genitourinary: reports: Flank Pain Musculoskeletal: reports: No Symptoms Integumentary: reports: No Symptoms Neurological: reports: No Symptoms Endocrine: reports: No Symptoms Hematology/Lymphatic: reports: No Symptoms Psychiatric: reports: No Symptoms Physical Exam Vital Signs: Vital Signs Temperature 99.3 F 06/01/19 15:00 Pulse Rate 97 H 06/01/19 15:00 Respiratory Rate 18 06/01/19 15:00 Blood Pressure 120/65 06/01/19 15:00 O2 Sat by Pulse Oximetry (%) 99 06/01/19 09:00 Constitutional: Yes: Calm Eyes: Yes: Conjunctiva Clear HENT: Yes: Atraumatic Neck: Yes: Supple Cardiovascular: Yes: S1, S2 Respiratory: Yes: CTA Bilaterally Gastrointestinal: Yes: Soft Renal/: Yes: WNL Musculoskeletal: Yes: WNL Edema: No Neurological: Yes: Oriented Psychiatric: Yes: Oriented Labs: CBC, BMP 06/01/19 05:40 06/01/19 05:40 Laboratory Tests 05/31/19 05/31/19 05/31/19 15:13 15:13 15:13 WBC 16.8 H Hgb Sodium Potassium BUN Creatinine C-Reactive Protein Urine Protein 2+ H Urine Blood 2+ H Ur Leukocyte Esterase 3+ H Urine WBC (Auto) 1435 U Pathogenic Cast Auto None seen Urine Bacteria (Auto) 3516.8 Urine HCG, Qual Negative VANESSA M-Pietro JAMES Screen c-ANCA Proteinase 3 (PR3) p-ANCA Atypical p-ANCA Myeloperoxidase Ab Double Strand DNA Ab Glomerular Base Memb Ab 05/31/19 05/31/19 05/31/19 19:58 21:33 21:33 WBC Hgb Sodium Potassium BUN Creatinine C-Reactive Protein 11.9 H Urine Protein Urine Blood Ur Leukocyte Esterase Urine WBC (Auto) U Pathogenic Cast Auto Urine Bacteria (Auto) Urine HCG, Qual VANESSA M-Pietro Pending JAMES Screen c-ANCA Pending Proteinase 3 (PR3) Pending p-ANCA Pending Atypical p-ANCA Pending Myeloperoxidase Ab Pending Double Strand DNA Ab Pending Glomerular Base Memb Ab Pending 06/01/19 06/01/19 06/01/19 05:40 05:40 05:40 WBC 19.2 H Hgb 12.8 Sodium 140 Potassium 3.5 BUN 6.5 L Creatinine 0.4 L C-Reactive Protein 15.0 H Urine Protein Urine Blood Ur Leukocyte Esterase Urine WBC (Auto) U Pathogenic Cast Auto Urine Bacteria (Auto) Urine HCG, Qual VANESSA M-Pietro JAMES Screen c-ANCA Proteinase 3 (PR3) p-ANCA Atypical p-ANCA Myeloperoxidase Ab Double Strand DNA Ab Glomerular Base Memb Ab 06/01/19 05:40 WBC Hgb Sodium Potassium BUN Creatinine C-Reactive Protein Urine Protein Urine Blood Ur Leukocyte Esterase Urine WBC (Auto) U Pathogenic Cast Auto Urine Bacteria (Auto) Urine HCG, Qual VANESSA M-Pietro JAMES Screen Pending c-ANCA Proteinase 3 (PR3) p-ANCA Atypical p-ANCA Myeloperoxidase Ab Double Strand DNA Ab Glomerular Base Memb Ab Imaging - Results Cat Scan: Report Reviewed Problem List - Problems (1) Fever Code(s): R50.9 - FEVER, UNSPECIFIED Qualifiers: Fever type: unspecified Qualified Code(s): R50.9 - Fever, unspecified (2) Sepsis Code(s): A41.9 - SEPSIS, UNSPECIFIED ORGANISM Qualifiers: Sepsis type: sepsis due to unspecified organism Qualified Code(s): A41.9 - Sepsis, unspecified organism Assessment/Plan Current Medications Generic Name Dose Route Start Last Admin Trade Name Freq PRN Reason Stop Dose Admin Acetaminophen 650 mg 05/31/19 23:29 Tylenol - PO Q4H PRN PAIN OR FEVER Albuterol Sulfate 1 amp 05/31/19 22:39 Ventolin 0.083% Nebulizer Soln - NEB Q6H PRN SHORT OF BREATH/WHEEZING Chlorhexidine Gluconate 1 applic 06/01/19 22:00 Hibiclens For Decolonization - TP HS ELBERT Heparin Sodium (Porcine) 5,000 unit 06/01/19 06:00 06/01/19 15:11 Heparin - SQ 5,000 unit TID ELBERT Administration Piperacillin Sod/Tazobactam 50 mls @ 100 mls/hr 06/01/19 13:15 06/01/19 13:58 Sod 3.375 gm/ Dextrose IVPB 100 mls/hr Q8H-IV ELBERT Administration Protocol Lactated Ringer's 1,000 ml in 1,000 mls @ 100 mls/hr 06/01/19 14:30 06/01/19 15:12 Lactated Ringers Solution IV 100 mls/hr ASDIR ELBERT Administration Mupirocin 1 applic 06/01/19 10:00 06/01/19 09:34 Bactroban Ointment (For Decolonization) - NS 06/06/19 09:59 1 applic BID ELBERT Administration Vancomycin HCl 1,000 mg 06/01/19 20:00 Vancomycin (Pre-Docked) IVPB 06/01/19 20:01 [email or web address] [facility] Protocol Impression 1. UTI 2. sepsis 3. renal infarction vs pyelo 4. left adnexal cyst 5. left subclavian art occlusion Plan - cont abx - vascular follow up for renal lesions. They did not recommend systemic a/c - repeat ua to see if there is improvement - ID input appreciated - renal function is preserved
[2019-06-01 18:40] LABS: URINE APPEARANCE Clear; URINE BILIRUBIN Negative (NEGATIVE); URINE COLOR Yellow; URINE GLUCOSE (UA) 1+ (NEGATIVE); URINE KETONE Negative (NEGATIVE); URINE LEUK ESTERASE Trace (NEGATIVE); URINE NITRITE Negative (NEGATIVE); URINE PROTEIN Negative (NEGATIVE)
[2019-06-01 19:01] LABS: URINE RBC 6.1 /hpf (0-4); URINE WBC 15.6 /hpf (0-5)
[2019-06-01 19:02] LABS: EPI CELLS 4.4 /HPF (0-5/HPF); HYALINE CASTS 3.74 /lpf (0-8); URINE BACTERIA 5.9 /hpf (NEGATIVE)
--- NOTE | 2019-06-01 20:12 | PN ---
Teaching Attending Note Name of Resident: Joao Ponce ATTENDING PHYSICIAN STATEMENT I saw and evaluated the patient. I reviewed the resident's note and discussed the case with the resident. I agree with the resident's findings and plan as documented. ASSESSMENT AND PLAN: 48 year old, Mongolian-speaking female with no significant past medical history presented to the hospital for several days of dysuria, frequency and 1 day of bilateral flank pain and admitted for sepsis 2/2 pyelonephritis, hematology consulted for L subclavian artery occlusive disease #Subclavian Artery Occlusion #Sepsis 2/2 UTI #Left Subclavian Artery Occlusion: follow up vascular consult. Seems chronic and compensated with collaterals. ? marker of atherosclerosis. vascular consult B/L renal cortical low atenuation areas -- suspect due to pyelonephritis. Clnical scenario with pyuria, fever, flank pain s/o pyelo over infarct Lt . adnexal cyst--f/u t/v sono outpatient
[2019-06-01] MEDS: CHLORHEXIDINE GLUCONATE 4% CLEANSER FOR DECOLONIZATION TP SCH (21:34)
[2019-06-02] MEDS ORDERED: DEXTROSE 5%-WATER - 50 ML IVPB ONE ×3 (02:13→17:35)
[2019-06-02] MEDS ORDERED: PIPERACILLIN/TAZOBACTAM 3.375 GM VIAL IVPB ONE ×3 (02:13→17:35)
[2019-06-02] MEDS: PIPERACILLIN/TAZOB 3.375 GM 3.375 GM in DEXTROSE 5%-WATER - 50 ML IVPB SCH ×3 (02:16→17:40)
[2019-06-02] MEDS: LACTATED RINGERS SOLUTION 1,000 ML/1,000 ML INFUS.BAG IV SCH ×2 (02:18→15:00)
[2019-06-02] MEDS: HEPARIN NA (PORCINE) 5,000 UNITS/ML 1ML VIAL SQ SCH ×3 (05:47→21:38)
[2019-06-02 06:59] LABS: BASO % 0.4 % (0-2.0); EOS % 0.9 % (0-4.5); HEMATOCRIT 34.3 % (32.4-45.2); HEMOGLOBIN 11.6 GM/dL (10.7-15.3); LYMPH % 22.5 % (8-40); MCH 32.1 pg (25.7-33.7); MCHC 33.8 g/dl (32.0-36.0); MONO % 10.1 % (3.8-10.2); NEUT % 66.1 % (42.8-82.8); PLATELET COUNT 261 K/MM3 (134-434); RBC 3.61 M/mm3 (3.60-5.2); WHITE BLOOD COUNT 11.5 K/mm3 (4.0-10.0)
[2019-06-02 07:50] LABS: BLOOD UREA NITROGEN 7.2 mg/dL (7-18); CALCIUM 7.9 mg/dL (8.5-10.1); CREATININE 0.3 mg/dL (0.55-1.3); POTASSIUM 3.5 mmol/L (3.5-5.1)
--- NOTE | 2019-06-02 08:20 | PN ---
Progress Note (short form) - Note Progress Note: RENAL Pt c/o some discomfort in left shoulder had history of mrsa and is on isolation for that she is otherwise better Last Vital Signs Temp Pulse Resp BP Pulse Ox 98.7 F 93 H 28 H 120/59 L 99 06/02/19 06:00 06/02/19 06:00 06/02/19 06:00 06/02/19 06:00 06/01/19 20:47 appears comfortable lying flat no jvd lungs clear has full range of motion on left shoulder and hand without areas of tenderness abd soft, not tender no cvsa tenderness bilaterally neuro awake and alert skin no obvious rash oted CBC, BMP 06/02/19 05:35 06/02/19 05:35 Impression 1. UTI 2. sepsis 3. pyelo most likely but resolving doubt renal infarcts 4. left adnexal cyst 5. 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 discomfort in left shoulder possibly from arterial occlusion Plan -obtain LDH which should be high in renal infarcts -vasc follow up -repeat urinalysis MV
[2019-06-02] MEDS: MUPIROCIN 2% TOPICAL OINTMENT FOR DECOLONIZATION NS SCH ×2 (09:26→21:38)
--- NOTE | 2019-06-02 09:51 | PN ---
Physical Exam: SUBJECTIVE: Patient seen and examined; no events reported overnight. Tmax 24h 101.8; currently hemodynamically stable. Pain controlled. WBC down today with no neutrophilia. Repeat UA with urobilinogen and 1+ glucose. LDH pending. ESR and CRP were up yesterday; repeating tomorrow AM. Subspecialty input noted; appreciate. OBJECTIVE: Vital Signs Period Temp Pulse Resp BP Sys/Stark Pulse Ox Last 24 Hr 98.1 F-101.8 F 87-106 18-28 92-133/53-98 99-99 GENERAL: The patient is awake, alert, and fully oriented, in no acute distress. HEAD: Normal with no signs of trauma. EYES: PERRL, extraocular movements intact, sclera anicteric, conjunctiva clear. No ptosis. ENT: Ears normal, nares patent, oropharynx clear without exudates, moist mucous membranes. NECK: Trachea midline, full range of motion, supple. LUNGS: Breath sounds equal, clear to auscultation bilaterally, no wheezes HEART: Regular rate and rhythm, S1, S2 without murmur, rub or gallop. ABDOMEN: Soft, nontender, nondistended, improved flank pain EXTREMITIES: 2+ pulses, warm, well-perfused, no edema. NEUROLOGICAL: Cranial nerves II through XII grossly intact. Normal speech PSYCH: Normal mood, normal affect. SKIN: Warm, dry, normal turgor, no rashes or lesions noted Laboratory Results - last 24 hr 06/01/19 06/02/19 06/02/19 17:00 05:35 05:35 WBC 11.5 H RBC 3.61 Hgb 11.6 Hct 34.3 MCV 95.0 MCH 32.1 MCHC 33.8 RDW 13.0 Plt Count 261 MPV 7.0 L Absolute Neuts (auto) 7.6 Neutrophils % 66.1 Lymphocytes % 22.5 D Monocytes % 10.1 Eosinophils % 0.9 Basophils % 0.4 Nucleated RBC % 0 Sodium 142 Potassium 3.5 Chloride 108 H Carbon Dioxide 22 Anion Gap 12 BUN 7.2 Creatinine 0.3 L Est GFR (CKD-EPI)AfAm 159.14 Est GFR (CKD-EPI)NonAf 137.31 Random Glucose 95 Calcium 7.9 L Triglycerides 126 Cholesterol 108 Total LDL Cholesterol 59 HDL Cholesterol 25 L Urine Color Yellow Urine Appearance Clear Urine pH 5.0 Ur Specific [place] 1.015 Urine Protein Negative Urine Glucose (UA) 1+ H Urine Ketones Negative Urine Blood 2+ H Urine Nitrite Negative Urine Bilirubin Negative Urine Urobilinogen 2.0 H Ur Leukocyte Esterase Trace Urine WBC (Auto) 15.6 Urine RBC (Auto) 6.1 Urine Casts (Auto) 3.74 U Epithel Cells (Auto) 4.4 Urine Bacteria (Auto) 5.9 Active Medications Generic Name Dose Route Start Last Admin Trade Name Freq PRN Reason Stop Dose Admin Acetaminophen 650 mg 05/31/19 23:29 06/01/19 17:36 Tylenol - PO 650 mg Q4H PRN Administration PAIN OR FEVER Albuterol Sulfate 1 amp 05/31/19 22:39 Ventolin 0.083% Nebulizer Soln - NEB Q6H PRN SHORT OF BREATH/WHEEZING Chlorhexidine Gluconate 1 applic 06/01/19 22:00 06/01/19 21:34 Hibiclens For Decolonization - TP 1 applic HS ELBERT Administration Heparin Sodium (Porcine) 5,000 unit 06/01/19 06:00 06/02/19 05:47 Heparin - SQ 5,000 unit TID ELBERT Administration Piperacillin Sod/Tazobactam 50 mls @ 100 mls/hr 06/01/19 13:15 06/02/19 09:25 Sod 3.375 gm/ Dextrose IVPB 100 mls/hr Q8H-IV ELBERT Administration Protocol Lactated Ringer's 1,000 ml in 1,000 mls @ 100 mls/hr 06/01/19 14:30 06/02/19 02:18 Lactated Ringers Solution IV 100 mls/hr ASDIR ELBERT Administration Mupirocin 1 applic 06/01/19 10:00 06/02/19 09:26 Bactroban Ointment (For Decolonization) - NS 06/06/19 09:59 1 applic BID ELBERT Administration ASSESSMENT/PLAN: Presents with sepsis 2/2 pyelo with ?renal infarct. # Sepsis 2/2 pyelo -Resolved sepsis; continue abx per ID and monitor clinically. WBC down, VSS today. #? Renal Infarct -Seen by vascular and heme; recs noted. Followup LDH per nephrology; repeat UA noted. Pain controlled. Cr stable. # Adenexal cyst -OP US; stable # L-SC Art. Occlusion -Chronic; OP followup. No issues today. Full Code Dispo: Pending workup of potential infarct and completion of IVabx per ID. Visit type - Emergency Visit Emergency Visit: No - New Patient This patient is new to me today: No - Critical Care Critical Care patient: No
--- NOTE | 2019-06-02 11:02 | PN ---
Progress Note, Physician History of Present Illness: stable no new issues no complaints - Current Medication List Current Medications: Active Medications Acetaminophen (Tylenol -) 650 mg PO Q4H PRN PRN Reason: PAIN OR FEVER Last Admin: 06/01/19 17:36 Dose: 650 mg Albuterol Sulfate (Ventolin 0.083% Nebulizer Soln -) 1 amp NEB Q6H PRN PRN Reason: SHORT OF BREATH/WHEEZING Chlorhexidine Gluconate (Hibiclens For Decolonization -) 1 applic TP HS ELBERT Last Admin: 06/01/19 21:34 Dose: 1 applic Heparin Sodium (Porcine) (Heparin -) 5,000 unit SQ TID ELBERT Last Admin: 06/02/19 05:47 Dose: 5,000 unit Piperacillin Sod/Tazobactam (Sod 3.375 gm/ Dextrose) 50 mls @ 100 mls/hr IVPB Q8H-IV ELBERT; Protocol Last Admin: 06/02/19 09:25 Dose: 100 mls/hr Lactated Ringer's (Lactated Ringers Solution) 1,000 ml in 1,000 mls @ 100 mls/ hr IV ASDIR ELBERT Last Admin: 06/02/19 02:18 Dose: 100 mls/hr Mupirocin (Bactroban Ointment (For Decolonization) -) 1 applic NS BID ELBERT Stop: 06/06/19 09:59 Last Admin: 06/02/19 09:26 Dose: 1 applic - Objective Vital Signs: Vital Signs Temperature 98.4 F 06/02/19 10:00 Pulse Rate 84 06/02/19 10:00 Respiratory Rate 20 06/02/19 10:00 Blood Pressure 114/50 L 06/02/19 10:00 O2 Sat by Pulse Oximetry (%) 99 06/02/19 08:51 Constitutional: Yes: No Distress, Calm Cardiovascular: Yes: S1, S2 Respiratory: Yes: Regular, CTA Bilaterally Gastrointestinal: Yes: Normal Bowel Sounds, Soft Musculoskeletal: Yes: WNL Extremities: Yes: WNL Neurological: Yes: Alert, Oriented Psychiatric: Yes: Alert, Oriented Labs: CBC, BMP 06/02/19 05:35 06/02/19 05:35 INR, PTT INR 1.14 (0.83-1.09) H 05/31/19 16:43 Assessment/Plan Sepsis Left pyelonephritis Left Subclavian occlusion B/L acute renal infarct vs pyelonephritis Left adnexal cyst plan continue abx close watch
--- NOTE | 2019-06-02 13:51 | PN ---
Progress Note (short form) - Note Progress Note: Seen and examined in the ICU hemodynamically stable fever curve improved, WBC improved awaiting floor transfer Current Medications Acetaminophen (Tylenol -) 650 mg PO Q4H PRN PRN Reason: PAIN OR FEVER Last Admin: 06/01/19 17:36 Dose: 650 mg Albuterol Sulfate (Ventolin 0.083% Nebulizer Soln -) 1 amp NEB Q6H PRN PRN Reason: SHORT OF BREATH/WHEEZING Chlorhexidine Gluconate (Hibiclens For Decolonization -) 1 applic TP HS ELBERT Last Admin: 06/01/19 21:34 Dose: 1 applic Heparin Sodium (Porcine) (Heparin -) 5,000 unit SQ TID ELBERT Last Admin: 06/02/19 13:39 Dose: 5,000 unit Piperacillin Sod/Tazobactam (Sod 3.375 gm/ Dextrose) 50 mls @ 100 mls/hr IVPB Q8H-IV ELBERT; Protocol Last Admin: 06/02/19 09:25 Dose: 100 mls/hr Lactated Ringer's (Lactated Ringers Solution) 1,000 ml in 1,000 mls @ 100 mls/ hr IV ASDIR ELBERT Last Admin: 06/02/19 02:18 Dose: 100 mls/hr Mupirocin (Bactroban Ointment (For Decolonization) -) 1 applic NS BID ELBERT Stop: 06/06/19 09:59 Last Admin: 06/02/19 09:26 Dose: 1 applic Vital Signs Period Temp Pulse Resp BP Sys/Stark Pulse Ox Last 24 Hr 98.1 F-101.8 F 84-106 18-28 92-133/50-98 99-99 Intake & Output 05/30/19 05/31/19 06/01/19 06/02/19 23:59 23:59 23:59 23:59 Intake Total 2200 1400 Balance 2200 1400 Weight 74.843 kg 69.127 kg 70.171 kg Exam: general: awake, alert and cooperative w/o distress HEENT:PERRL CV: RRR Pulm: CTA Abd: SNTND +BS Ext: WWP no edema NEuro: grossly intact CBC, BMP 06/02/19 05:35 06/02/19 05:35 ASSESSMENT/PLAN: Resolving Sepsis due to a source Left pyelonephritis Left Subclavian occlusion B/L acute renal infarct vs pyelonephritis Left adnexal cyst - cont ABX coverage - VTE prophylaxis - O2 as needed - Vascular following - PO as tolerated - OOB to chair Stable for Floor transfer Eulalio HUNTER Pulm/CCM CCT: 35m
[2019-06-02 15:19] LABS: URINE APPEARANCE Clear; URINE BILIRUBIN Negative (NEGATIVE); URINE COLOR Yellow; URINE GLUCOSE (UA) Negative (NEGATIVE); URINE KETONE Negative (NEGATIVE); URINE LEUK ESTERASE Negative (NEGATIVE); URINE NITRITE Negative (NEGATIVE); URINE PROTEIN Negative (NEGATIVE)
[2019-06-02 15:28] VITALS: BMI 24.5
[2019-06-02] MEDS: CHLORHEXIDINE GLUCONATE 4% CLEANSER FOR DECOLONIZATION TP SCH (21:39)
[2019-06-03] MEDS ORDERED: PIPERACILLIN/TAZOBACTAM 3.375 GM VIAL IVPB ONE ×3 (02:11→17:22)
[2019-06-03] MEDS ORDERED: DEXTROSE 5%-WATER - 50 ML IVPB ONE ×2 (02:11→09:44)
[2019-06-03] MEDS: PIPERACILLIN/TAZOB 3.375 GM 3.375 GM in DEXTROSE 5%-WATER - 50 ML IVPB SCH ×3 (02:15→17:41)
[2019-06-03] MEDS: HEPARIN NA (PORCINE) 5,000 UNITS/ML 1ML VIAL SQ SCH ×3 (05:27→21:20)
[2019-06-03 07:02] LABS: ALBUMIN 2.3 g/dl (3.4-5.0); BILIRUBIN,TOTAL 0.1 mg/dL (0.2-1); BLOOD UREA NITROGEN 7.2 mg/dL (7-18); CALCIUM 7.8 mg/dL (8.5-10.1); CREATININE 0.4 mg/dL (0.55-1.3); POTASSIUM 3.5 mmol/L (3.5-5.1); TOT PROT 5.1 g/dl (6.4-8.2)
[2019-06-03 07:22] LABS: BASO % 0.7 % (0-2.0); EOS % 2.5 % (0-4.5); HEMOGLOBIN 11.5 GM/dL (10.7-15.3); LYMPH % 31.6 % (8-40); MCH 32.1 pg (25.7-33.7); MCHC 33.8 g/dl (32.0-36.0); MEAN CELL VOLUME 95.2 fl (80-96); MEAN PLT VOLUME 7.3 fl (7.5-11.1); MONO % 13.7 % (3.8-10.2); NEUT % 51.5 % (42.8-82.8); PLATELET COUNT 280 K/MM3 (134-434); RBC 3.58 M/mm3 (3.60-5.2); RDW 13.2 % (11.6-15.6); WHITE BLOOD COUNT 9.2 K/mm3 (4.0-10.0)
--- NOTE | 2019-06-03 08:33 | PN ---
Progress Note (short form) - Note Progress Note: RENAL Pt c/o some discomfort in left shoulder had history of mrsa and is on isolation for that she is otherwise better no abdominal pain Last Vital Signs Temp Pulse Resp BP Pulse Ox 98.2 F 84 22 H 114/72 98 06/03/19 08:00 06/03/19 08:00 06/03/19 08:00 06/03/19 08:00 06/03/19 08:16 appears comfortable lying flat no jvd lungs clear has full range of motion on left shoulder and hand without areas of tenderness abd soft, not tender no cva tenderness bilaterally neuro awake and alert skin no obvious rash noted has some scoliosis left arm is warm though I could not find pulse CBC, BMP 06/03/19 05:25 06/03/19 05:25 Current Medications Generic Name Dose Route Start Last Admin Trade Name Freq PRN Reason Stop Dose Admin Acetaminophen 650 mg 05/31/19 23:29 06/01/19 17:36 Tylenol - PO 650 mg Q4H PRN Administration PAIN OR FEVER Albuterol Sulfate 1 amp 05/31/19 22:39 Ventolin 0.083% Nebulizer Soln - NEB Q6H PRN SHORT OF BREATH/WHEEZING Chlorhexidine Gluconate 1 applic 06/01/19 22:00 06/02/19 21:39 Hibiclens For Decolonization - TP 1 applic HS ELBERT Administration Heparin Sodium (Porcine) 5,000 unit 06/01/19 06:00 06/03/19 05:27 Heparin - SQ 5,000 unit TID ELBERT Administration Piperacillin Sod/Tazobactam 50 mls @ 100 mls/hr 06/01/19 13:15 06/03/19 02:15 Sod 3.375 gm/ Dextrose IVPB 100 mls/hr Q8H-IV ELBERT Administration Protocol Lactated Ringer's 1,000 ml in 1,000 mls @ 100 mls/hr 06/01/19 14:30 06/03/19 00:00 Lactated Ringers Solution IV 100 mls/hr ASDIR ELBERT Administration Mupirocin 1 applic 06/01/19 10:00 06/02/19 21:38 Bactroban Ointment (For Decolonization) - NS 06/06/19 09:59 1 applic BID ELBERT Administration LD total 122 Impression 1. UTI- repeat urinalysis normal 2. sepsis 3. pyelo most likely but resolving doubt renal infarcts 4. left adnexal cyst 5. 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 discomfort in left shoulder possibly from arterial occlusion 7. LDH normal- not c/w infarct Plan would give course of antibiotics for pyelo vasc follow up of her art occlusion- would r/o [place] arteritis- early hep b s ag and hep c rheum eval MV MV
[2019-06-03 09:47] LABS: ERYTHROCYTE SEDIMENTATION RATE 45 mm/hr (0-20)
--- NOTE | 2019-06-03 10:01 | PN ---
Physical Exam: SUBJECTIVE: Patient seen and examined; afebrile and hemodynamically stable awaiting floor transfer. Subspecialty input reviewed. No new complaints today. Pain controlled. Ucx 05/31 with GNB >100k cfu pending speciation on zosyn per ID. ESR slightly increased but WBC wnl today. Appreciate subspecialty input in the ongoing management of this complex patient. 10 sys ROS done and negative aside from HPI OBJECTIVE: Vital Signs Period Temp Pulse Resp BP Sys/Stark Pulse Ox Last 24 Hr 98.1 F-99.1 F 82-95 16-25 90-126/50-76 98-99 GENERAL: The patient is awake, alert, and fully oriented, in no acute distress. HEAD: Normal with no signs of trauma. EYES: PERRL, extraocular movements intact, sclera anicteric, conjunctiva clear. No ptosis. ENT: Ears normal, nares patent, oropharynx clear without exudates, moist mucous membranes. NECK: Trachea midline, full range of motion, supple. LUNGS: Breath sounds equal, clear to auscultation bilaterally, no wheezes, no crackles, no accessory muscle use. HEART: Regular rate and rhythm, S1, S2 without murmur, rub or gallop. ABDOMEN: Soft, nontender, nondistended, normoactive bowel sounds,flank pain improved. EXTREMITIES: 2+ pulses, warm, well-perfused, no edema. NEUROLOGICAL: Cranial nerves II through XII grossly intact. Normal speech, gait not observed. PSYCH: Normal mood, normal affect. SKIN: Warm, dry, normal turgor, no rashes or lesions noted Laboratory Results - last 24 hr 05/31/19 06/01/19 06/02/19 21:33 05:40 13:00 WBC RBC Hgb Hct MCV MCH MCHC RDW Plt Count MPV Absolute Neuts (auto) Neutrophils % Lymphocytes % Monocytes % Eosinophils % Basophils % Nucleated RBC % ESR Sodium Potassium Chloride Carbon Dioxide Anion Gap BUN Creatinine Est GFR (CKD-EPI)AfAm Est GFR (CKD-EPI)NonAf Random Glucose Calcium Total Bilirubin AST ALT Alkaline Phosphatase LD Total Total Protein Albumin Urine Color Yellow Urine Appearance Clear Urine pH 7.0 D Ur Specific [place] 1.010 Urine Protein Negative Urine Glucose (UA) Negative Urine Ketones Negative Urine Blood Negative Urine Nitrite Negative Urine Bilirubin Negative Urine Urobilinogen 1.0 Ur Leukocyte Esterase Negative JAMES Screen Negative Double Strand DNA Ab <1 06/03/19 06/03/19 05:25 05:25 WBC 9.2 RBC 3.58 L Hgb 11.5 Hct 34.0 MCV 95.2 MCH 32.1 MCHC 33.8 RDW 13.2 Plt Count 280 MPV 7.3 L Absolute Neuts (auto) 4.7 Neutrophils % 51.5 D Lymphocytes % 31.6 D Monocytes % 13.7 H Eosinophils % 2.5 D Basophils % 0.7 Nucleated RBC % 0 ESR 45 H Sodium 144 Potassium 3.5 Chloride 109 H Carbon Dioxide 25 Anion Gap 10 BUN 7.2 Creatinine 0.4 L Est GFR (CKD-EPI)AfAm 144.77 Est GFR (CKD-EPI)NonAf 124.91 Random Glucose 108 H Calcium 7.8 L Total Bilirubin 0.1 L AST 14 L ALT 24 Alkaline Phosphatase 61 LD Total 122 Total Protein 5.1 L Albumin 2.3 L Urine Color Urine Appearance Urine pH Ur Specific [place] Urine Protein Urine Glucose (UA) Urine Ketones Urine Blood Urine Nitrite Urine Bilirubin Urine Urobilinogen Ur Leukocyte Esterase JAMES Screen Double Strand DNA Ab Active Medications Generic Name Dose Route Start Last Admin Trade Name Freq PRN Reason Stop Dose Admin Acetaminophen 650 mg 05/31/19 23:29 06/01/19 17:36 Tylenol - PO 650 mg Q4H PRN Administration PAIN OR FEVER Albuterol Sulfate 1 amp 05/31/19 22:39 Ventolin 0.083% Nebulizer Soln - NEB Q6H PRN SHORT OF BREATH/WHEEZING Chlorhexidine Gluconate 1 applic 06/01/19 22:00 06/02/19 21:39 Hibiclens For Decolonization - TP 1 applic HS ELBERT Administration Heparin Sodium (Porcine) 5,000 unit 06/01/19 06:00 06/03/19 05:27 Heparin - SQ 5,000 unit TID ELBERT Administration Piperacillin Sod/Tazobactam 50 mls @ 100 mls/hr 06/01/19 13:15 06/03/19 02:15 Sod 3.375 gm/ Dextrose IVPB 100 mls/hr Q8H-IV ELBERT Administration Protocol Lactated Ringer's 1,000 ml in 1,000 mls @ 100 mls/hr 06/01/19 14:30 06/03/19 00:00 Lactated Ringers Solution IV 100 mls/hr ASDIR ELBERT Administration Mupirocin 1 applic 06/01/19 10:00 06/02/19 21:38 Bactroban Ointment (For Decolonization) - NS 06/06/19 09:59 1 applic BID ELBERT Administration ASSESSMENT/PLAN: Presents with sepsis 2/2 pyelo with ?renal infarct. Pending transfer out of ICU # Sepsis 2/2 pyelo -Resolved sepsis; continue abx per ID and monitor clinically. WBC down, VSS today. Consider DC IVF tomorrow if remains stable. CRP trended down today. Growing Ecoli in urine sensativities noted. Continue current abx per ID with zosyn. #? Renal Infarct -Seen by vascular and heme; recs noted. LDH wnl; repeat UA noted. Pain controlled. Cr remains stable # Adenexal cyst -OP US; stable # L-SC Art. Occlusion -Chronic; OP followup. No issues today. Neurovascular checks ordered for floor. Full Code Dispo: Pending workup of potential infarct and completion of IVabx per ID. Visit type - Emergency Visit Emergency Visit: No - New Patient This patient is new to me today: No - Critical Care Critical Care patient: No
[2019-06-03] MEDS: MUPIROCIN 2% TOPICAL OINTMENT FOR DECOLONIZATION NS SCH (10:17)
--- NOTE | 2019-06-03 10:20 | PN ---
Progress Note (short form) - Note Progress Note: Seen and examined in ICU awaiting floor bed afebrile blood cultures from 05/31 (+) Current Medications Acetaminophen (Tylenol -) 650 mg PO Q4H PRN PRN Reason: PAIN OR FEVER Last Admin: 06/01/19 17:36 Dose: 650 mg Albuterol Sulfate (Ventolin 0.083% Nebulizer Soln -) 1 amp NEB Q6H PRN PRN Reason: SHORT OF BREATH/WHEEZING Chlorhexidine Gluconate (Hibiclens For Decolonization -) 1 applic TP HS ELBERT Last Admin: 06/02/19 21:39 Dose: 1 applic Heparin Sodium (Porcine) (Heparin -) 5,000 unit SQ TID ELBERT Last Admin: 06/03/19 05:27 Dose: 5,000 unit Piperacillin Sod/Tazobactam (Sod 3.375 gm/ Dextrose) 50 mls @ 100 mls/hr IVPB Q8H-IV ELBERT; Protocol Last Admin: 06/03/19 10:17 Dose: 100 mls/hr Lactated Ringer's (Lactated Ringers Solution) 1,000 ml in 1,000 mls @ 100 mls/ hr IV ASDIR ELBERT Last Admin: 06/03/19 00:00 Dose: 100 mls/hr Mupirocin (Bactroban Ointment (For Decolonization) -) 1 applic NS BID ELBERT Stop: 06/06/19 09:59 Last Admin: 06/03/19 10:17 Dose: 1 applic Vital Signs Period Temp Pulse Resp BP Sys/Stark Pulse Ox Last 24 Hr 97.9 F-99.1 F 82-95 16-25 90-126/58-76 98-99 Intake & Output 05/31/19 06/01/19 06/02/19 06/03/19 23:59 23:59 23:59 23:59 Intake Total 2200 3100 Balance 2200 3100 Weight 74.843 kg 69.127 kg 69.853 kg 70.171 kg Exam: general: awake, alert and cooperative w/o distress HEENT:PERRL CV: RRR Pulm: CTA Abd: SNTND +BS Ext: WWP no edema NEuro: grossly intact CBC, BMP 06/03/19 05:25 06/03/19 05:25 Microbiology 05/31/19 23:33 Blood - Peripheral Venous Blood Culture - Preliminary Pending Organism 05/31/19 23:33 Blood - Peripheral Venous Blood Culture - Preliminary NO GROWTH OBTAINED AFTER 48 HOURS, INCUBATION TO CONTINUE FOR 3 DAYS. 05/31/19 16:43 Blood - Peripheral Venous Blood Culture - Preliminary NO GROWTH OBTAINED AFTER 48 HOURS, INCUBATION TO CONTINUE FOR 3 DAYS. 05/31/19 16:43 Blood - Peripheral Venous Blood Culture - Preliminary NO GROWTH OBTAINED AFTER 48 HOURS, INCUBATION TO CONTINUE FOR 3 DAYS. 06/01/19 12:00 Nares - Mrsa Screen - Right MRSA Screen - Preliminary NO MRSA ISOLATED 06/01/19 12:00 Nares - Mrsa Screen - Left MRSA Screen - Preliminary NO MRSA ISOLATED 05/31/19 15:13 Urine - Urine Clean Catch Urine Culture - Preliminary Lactose Fermenting Neg Bacilli ASSESSMENT/PLAN: Resolving Sepsis due to a source Left pyelonephritis Left Subclavian occlusion B/L acute renal infarct vs pyelonephritis Left adnexal cyst - cont ABX coverage - repeat blood cultures today - VTE prophylaxis - O2 as needed - Vascular following - PO as tolerated - OOB to chair Stable for Floor transfer Eulalio ACNP Pulm/CCM CCT: 35m
[2019-06-03] MEDS: LACTATED RINGERS SOLUTION 1,000 ML/1,000 ML INFUS.BAG IV SCH ×3 (13:28→21:21)
--- NOTE | 2019-06-03 15:21 | PN ---
Progress Note, Physician History of Present Illness: stable - Current Medication List Current Medications: Active Medications Acetaminophen (Tylenol -) 650 mg PO Q4H PRN PRN Reason: PAIN OR FEVER Last Admin: 06/01/19 17:36 Dose: 650 mg Albuterol Sulfate (Ventolin 0.083% Nebulizer Soln -) 1 amp NEB Q6H PRN PRN Reason: SHORT OF BREATH/WHEEZING Chlorhexidine Gluconate (Hibiclens For Decolonization -) 1 applic TP HS ELBERT Last Admin: 06/02/19 21:39 Dose: 1 applic Heparin Sodium (Porcine) (Heparin -) 5,000 unit SQ TID ELBERT Last Admin: 06/03/19 14:01 Dose: 5,000 unit Piperacillin Sod/Tazobactam (Sod 3.375 gm/ Dextrose) 50 mls @ 100 mls/hr IVPB Q8H-IV ELBERT; Protocol Last Admin: 06/03/19 10:17 Dose: 100 mls/hr Lactated Ringer's (Lactated Ringers Solution) 1,000 ml in 1,000 mls @ 50 mls/ hr IV ASDIR ELBERT Last Admin: 06/03/19 13:28 Dose: 50 mls/hr Mupirocin (Bactroban Ointment (For Decolonization) -) 1 applic NS BID ELBERT Stop: 06/06/19 09:59 Last Admin: 06/03/19 10:17 Dose: 1 applic - Objective Vital Signs: Vital Signs Temperature 98.1 F 06/03/19 14:23 Pulse Rate 84 06/03/19 15:15 Respiratory Rate 18 06/03/19 15:15 Blood Pressure 121/84 06/03/19 15:15 O2 Sat by Pulse Oximetry (%) 98 06/03/19 09:00 Constitutional: Yes: No Distress, Calm Cardiovascular: Yes: S1, S2 Respiratory: Yes: Regular, CTA Bilaterally Gastrointestinal: Yes: Normal Bowel Sounds, Soft Musculoskeletal: Yes: WNL Extremities: Yes: WNL Neurological: Yes: Alert, Oriented Psychiatric: Yes: Alert, Oriented Labs: CBC, BMP 06/03/19 05:25 06/03/19 05:25 INR, PTT INR 1.14 (0.83-1.09) H 05/31/19 16:43 Assessment/Plan Sepsis Left pyelonephritis Left Subclavian occlusion B/L acute renal infarct vs pyelonephritis Left adnexal cyst plan continue abx close watch
[2019-06-03] MEDS ORDERED: DEXTROSE 5%-WATER - 100 ML IVPB ONE (17:22)
[2019-06-03] MEDS ORDERED: ACETAMINOPHEN 325 MG TABLET (FP) PO PRN (20:52)
[2019-06-03] MEDS ORDERED: ALBUTEROL SO4 0.083% IH SOL 2.5 MG/3 ML VIAL.NEB. NEB PRN (20:52)
[2019-06-04] MEDS ORDERED: PIPERACILLIN/TAZOBACTAM 3.375 GM VIAL IVPB ONE ×2 (02:16→08:07)
[2019-06-04] MEDS ORDERED: DEXTROSE 5%-WATER - 50 ML IVPB ONE ×2 (02:16→08:08)
[2019-06-04] MEDS: PIPERACILLIN/TAZOB 3.375 GM 3.375 GM in DEXTROSE 5%-WATER - 50 ML IVPB SCH ×2 (02:21→09:12)
[2019-06-04 05:33] VITALS: TEMP 98.4
[2019-06-04] MEDS: HEPARIN NA (PORCINE) 5,000 UNITS/ML 1ML VIAL SQ SCH ×2 (06:32→14:32)
--- NOTE | 2019-06-04 07:35 | PN ---
Teaching Attending Note Name of Resident: Enmanuel Wilson ATTENDING PHYSICIAN STATEMENT I saw and evaluated the patient. I reviewed the resident's note and discussed the case with the resident. I agree with the resident's findings and plan as documented. SUBJECTIVE: OBJECTIVE: ASSESSMENT AND PLAN:
[2019-06-04 09:15] LABS: HEMATOCRIT 33.3 % (32.4-45.2); HEMOGLOBIN 11.2 GM/dL (10.7-15.3); MCHC 33.6 g/dl (32.0-36.0); MEAN CELL VOLUME 95.3 fl (80-96); MEAN PLT VOLUME 7.1 fl (7.5-11.1); PLATELET COUNT 302 K/MM3 (134-434); RDW 13.3 % (11.6-15.6); WHITE BLOOD COUNT 7.8 K/mm3 (4.0-10.0)
--- NOTE | 2019-06-04 09:29 | PN ---
Progress Note, Physician History of Present Illness: stable no complaints - Current Medication List Current Medications: Active Medications Acetaminophen (Tylenol -) 650 mg PO Q4H PRN PRN Reason: PAIN OR FEVER Albuterol Sulfate (Ventolin 0.083% Nebulizer Soln -) 1 amp NEB Q6H PRN PRN Reason: SHORT OF BREATH/WHEEZING Heparin Sodium (Porcine) (Heparin -) 5,000 unit SQ TID [facility] Last Admin: 06/04/19 06:32 Dose: 5,000 unit Lactated Ringer's (Lactated Ringers Solution) 1,000 ml in 1,000 mls @ 50 mls/ hr IV ASDIR [facility] Last Admin: 06/03/19 21:21 Dose: 50 mls/hr - Objective Vital Signs: Vital Signs Temperature 98.4 F 06/04/19 05:00 Pulse Rate 85 06/04/19 05:00 Respiratory Rate 18 06/04/19 05:00 Blood Pressure 123/58 L 06/04/19 05:00 O2 Sat by Pulse Oximetry (%) 98 06/03/19 21:00 Constitutional: Yes: No Distress, Calm Cardiovascular: Yes: S1, S2 Respiratory: Yes: Regular, CTA Bilaterally Gastrointestinal: Yes: Normal Bowel Sounds, Soft Musculoskeletal: Yes: WNL Extremities: Yes: WNL Neurological: Yes: Alert, Oriented Psychiatric: Yes: Alert, Oriented Labs: CBC, BMP 06/04/19 08:25 INR, PTT INR 1.14 (0.83-1.09) H 05/31/19 16:43 Assessment/Plan Sepsis Left pyelonephritis Left Subclavian occlusion B/L acute renal infarct vs pyelonephritis Left adnexal cyst plan continue abx abx changed to levaquin if the blood cx are negative patient can be send for another 7 days of oral abx
[2019-06-04 09:51] LABS: BLOOD UREA NITROGEN 10.4 mg/dL (7-18); CALCIUM 8.7 mg/dL (8.5-10.1); CREATININE 0.4 mg/dL (0.55-1.3); MAGNESIUM 1.8 mg/dL (1.8-2.4); PHOSPHOROUS 5.3 mg/dL (2.5-4.9); POTASSIUM 3.7 mmol/L (3.5-5.1)
[2019-06-04 10:06] LABS: ANTIGLOMERULAR BASEMENT MEN.AB 2 units (0-20)
--- NOTE | 2019-06-04 11:33 | EKG ---
Test Reason : Blood Pressure : / mmHG Vent. Rate : 126 BPM Atrial Rate : 126 BPM P-R Int : 118 ms QRS Dur : 072 ms QT Int : 304 ms P-R-T Axes : -21 075 007 degrees QTc Int : 440 ms SINUS TACHYCARDIA NONSPECIFIC T WAVE ABNORMALITY ABNORMAL ECG WHEN COMPARED WITH ECG OF 22-MAY-2018 19:05, T WAVE VARIATION Confirmed by OLIVERIO SAMUEL MD ([id number]) on 06/04/2019 11:33:00 AM Referred By: Confirmed By:OLIVERIO SAMUEL MD
--- NOTE | 2019-06-04 14:02 | PN ---
Progress Note, Physician History of Present Illness: Pt seen and examined at bedside. She is awake and alert. She denies fevers or chills. - Current Medication List Current Medications: Active Medications Acetaminophen (Tylenol -) 650 mg PO Q4H PRN PRN Reason: PAIN OR FEVER Albuterol Sulfate (Ventolin 0.083% Nebulizer Soln -) 1 amp NEB Q6H PRN PRN Reason: SHORT OF BREATH/WHEEZING Heparin Sodium (Porcine) (Heparin -) 5,000 unit SQ TID [facility] Last Admin: 06/04/19 06:32 Dose: 5,000 unit Lactated Ringer's (Lactated Ringers Solution) 1,000 ml in 1,000 mls @ 50 mls/ hr IV ASDIR [facility] Last Admin: 06/03/19 21:21 Dose: 50 mls/hr Levofloxacin (Levaquin -) 750 mg PO DAILY [facility] Last Admin: 06/04/19 11:34 Dose: 750 mg - Objective Vital Signs: Vital Signs Temperature 98.4 F 06/04/19 05:00 Pulse Rate 85 06/04/19 05:00 Respiratory Rate 18 06/04/19 05:00 Blood Pressure 123/58 L 06/04/19 05:00 O2 Sat by Pulse Oximetry (%) 98 06/03/19 21:00 Constitutional: Yes: Calm Eyes: Yes: Conjunctiva Clear HENT: Yes: Atraumatic Neck: Yes: Supple Cardiovascular: Yes: S1, S2 Respiratory: Yes: CTA Bilaterally Gastrointestinal: Yes: Soft Genitourinary: Yes: WNL Musculoskeletal: Yes: WNL Edema: No Neurological: Yes: Oriented Psychiatric: Yes: Oriented Labs: CBC, BMP 06/04/19 08:25 06/04/19 08:25 INR, PTT INR 1.14 (0.83-1.09) H 05/31/19 16:43 Problem List - Problems (1) Fever Code(s): R50.9 - FEVER, UNSPECIFIED Qualifiers: Fever type: unspecified Qualified Code(s): R50.9 - Fever, unspecified (2) Sepsis Code(s): A41.9 - SEPSIS, UNSPECIFIED ORGANISM Qualifiers: Sepsis type: sepsis due to unspecified organism Qualified Code(s): A41.9 - Sepsis, unspecified organism Assessment/Plan Current Medications Generic Name Dose Route Start Last Admin Trade Name Freq PRN Reason Stop Dose Admin Acetaminophen 650 mg 06/03/19 20:52 Tylenol - PO Q4H PRN PAIN OR FEVER Albuterol Sulfate 1 amp 06/03/19 20:52 Ventolin 0.083% Nebulizer Soln - NEB Q6H PRN SHORT OF BREATH/WHEEZING Heparin Sodium (Porcine) 5,000 unit 06/03/19 22:00 06/04/19 06:32 Heparin - SQ 5,000 unit TID ELBERT Administration Lactated Ringer's 1,000 ml in 1,000 mls @ 50 mls/hr 06/03/19 12:12 06/03/19 21:21 Lactated Ringers Solution IV 50 mls/hr ASDIR ELBERT Administration Levofloxacin 750 mg 06/04/19 10:00 06/04/19 11:34 Levaquin - PO 750 mg DAILY ELBERT Administration Microbiology 06/01/19 12:00 Nares - Mrsa Screen - Right MRSA Screen - Final NO MRSA ISOLATED 06/01/19 12:00 Nares - Mrsa Screen - Left MRSA Screen - Final NO MRSA ISOLATED 05/31/19 15:13 Urine - Urine Clean Catch Urine Culture - Final Escherichia Coli 06/03/19 11:36 Blood - Peripheral Venous Blood Culture - Preliminary NO GROWTH OBTAINED AFTER 24 HOURS, INCUBATION TO CONTINUE FOR 4 DAYS. 06/03/19 11:31 Blood - Peripheral Venous Blood Culture - Preliminary NO GROWTH OBTAINED AFTER 24 HOURS, INCUBATION TO CONTINUE FOR 4 DAYS. 05/31/19 23:33 Blood - Peripheral Venous Blood Culture - Preliminary Pending Organism 05/31/19 23:33 Blood - Peripheral Venous Blood Culture - Preliminary NO GROWTH OBTAINED AFTER 72 HOURS, INCUBATION TO CONTINUE FOR 2 DAYS. 05/31/19 16:43 Blood - Peripheral Venous Blood Culture - Preliminary NO GROWTH OBTAINED AFTER 72 HOURS, INCUBATION TO CONTINUE FOR 2 DAYS. 05/31/19 16:43 Blood - Peripheral Venous Blood Culture - Preliminary NO GROWTH OBTAINED AFTER 72 HOURS, INCUBATION TO CONTINUE FOR 2 DAYS. Laboratory Tests 05/31/19 05/31/19 06/01/19 21:33 21:33 05:40 Urine Protein Urine Glucose (UA) Urine Ketones Urine Blood Urine Nitrite Urine Bilirubin Urine Urobilinogen VANESSA M-Pietro Pending JAMES Screen Negative c-ANCA Pending Proteinase 3 (PR3) Pending p-ANCA Pending Atypical p-ANCA Pending Myeloperoxidase Ab Pending Double Strand DNA Ab <1 Glomerular Base Memb Ab 2 HIV 1&2 Ag/Ab, 4th Gen 06/02/19 06/03/19 13:00 05:25 Urine Protein Negative Urine Glucose (UA) Negative Urine Ketones Negative Urine Blood Negative Urine Nitrite Negative Urine Bilirubin Negative Urine Urobilinogen 1.0 VANESSA M-Pietro JAMES Screen c-ANCA Proteinase 3 (PR3) p-ANCA Atypical p-ANCA Myeloperoxidase Ab Double Strand DNA Ab Glomerular Base Memb Ab HIV 1&2 Ag/Ab, 4th Gen Non reactive Impression 1. UTI 2. sepsis 3. renal infarction vs pyelo 4. left adnexal cyst 5. left subclavian art occlusion Plan - repeat ua is improved - abx per ID - follow up serologies - vascular input for lesions - will need repeat imaging to evaluate renal lesions d
[2019-06-04 14:06] LABS: ATYPICAL pANCA <1:20 titer (Neg:<1:20); C-ANCA <1:20 titer (Neg:<1:20)
[2019-06-04 14:13] VITALS: BP 123/51; PULSE 86
--- NOTE | 2019-06-04 22:03 | DS ---
Physical Exam: SUBJECTIVE: Patient seen and examined OBJECTIVE: Vital Signs Period Temp Pulse Resp BP Sys/Stark Pulse Ox Last 24 Hr 98.4 F-98.4 F 85-86 18-18 123-123/51-58 98 PHYSICAL EXAM GENERAL: The patient is awake, alert, and fully oriented, in no acute distress. HEAD: Normal with no signs of trauma. EYES: PERRL, extraocular movements intact, sclera anicteric, conjunctiva clear. ENT: Ears normal, nares patent, oropharynx clear without exudates, moist mucous membranes. NECK: Trachea midline, full range of motion, supple. LUNGS: Breath sounds equal, clear to auscultation bilaterally, no wheezes, no crackles, no accessory muscle use. HEART: Regular rate and rhythm, S1, S2 without murmur, rub or gallop. ABDOMEN: Soft, nontender, nondistended, normoactive bowel sounds, no guarding, no rebound, no hepatosplenomegaly, no masses. EXTREMITIES: 2+ pulses, warm, well-perfused, no edema. NEUROLOGICAL: Cranial nerves II through XII grossly intact. Normal speech, gait not observed. PSYCH: Normal mood, normal affect. SKIN: Warm, dry, normal turgor, no rashes or lesions noted. LABS Laboratory Results - last 24 hr 05/31/19 06/03/19 06/04/19 21:33 05:25 08:25 WBC 7.8 RBC 3.50 L Hgb 11.2 Hct 33.3 MCV 95.3 MCH 32.0 MCHC 33.6 RDW 13.3 Plt Count 302 MPV 7.1 L Sodium Potassium Chloride Carbon Dioxide Anion Gap BUN Creatinine Est GFR (CKD-EPI)AfAm Est GFR (CKD-EPI)NonAf Random Glucose Calcium Phosphorus Magnesium c-ANCA <1:20 Proteinase 3 (PR3) <3.5 p-ANCA <1:20 Atypical p-ANCA <1:20 Myeloperoxidase Ab <9.0 Glomerular Base Memb Ab 2 HIV 1&2 Ag/Ab, 4th Gen Non reactive 06/04/19 08:25 WBC RBC Hgb Hct MCV MCH MCHC RDW Plt Count MPV Sodium 143 Potassium 3.7 Chloride 106 Carbon Dioxide 27 Anion Gap 11 BUN 10.4 Creatinine 0.4 L Est GFR (CKD-EPI)AfAm 144.77 Est GFR (CKD-EPI)NonAf 124.91 Random Glucose 165 H Calcium 8.7 Phosphorus 5.3 H Magnesium 1.8 c-ANCA Proteinase 3 (PR3) p-ANCA Atypical p-ANCA Myeloperoxidase Ab Glomerular Base Memb Ab HIV 1&2 Ag/Ab, 4th Gen HOSPITAL COURSE: Date of Admission:05/31/19 Date of Discharge: 06/04/19 Minutes to complete discharge: 30 Discharge Summary Reason For Visit: URINARY TRACT INFECTION,FEVER,SUBCLAVIAN STEAL Condition: Good - Instructions Diet, Activity, Other Instructions: You were in the hospital because of a possible kidney infection. You will need to follow up with the following doctors: Dr. iWlson (Dr. Gonzalez), [facility] at [facility] Dr. Loaiza, Vascular Surgery Dr. Davison, Hematology Dr. Beyer, Infectious diseases You will have to follow up on a blood culture result. Dr. Cummings, nephrology You will need to follow up on some lab work that was done in the hospital. You also need to follow up on an adnexal cyst with an U/S as an out patient. Dr. Taylor, Rheumatology. 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 Dr. Mukherjee, Podiatry. You need to call to make an appointment to see the hand box folder as an out patient about the lesion on your right foot. You are being discharged with a new medication: Levofloxacin 750 mg daily for 7 days If your symptoms get worse, please return to the emergency department or call your doctor. Referrals: Santi Lantigua MD [Staff Physician] - 06/07/19 Milan Beyer MD [Staff Physician] - 1 Week Pito Taylor MD [Staff Physician] - 1 Week Enmanuel Wilson RES [Resident] - 06/07/19 Johnson Loaiza DO [Staff Physician] - 1 Week Alanis Cummings MD [Staff Physician] - 1 Week Jerome Mukherjee DPM [Staff Physician] - 1 Week Gen Boss MD, MD [Staff Physician] - 1 Week Disposition: HOME - Home Medications Comprehensive Discharge Medication List: Ambulatory Orders levoFLOXacin [Levaquin -] 750 mg PO DAILY #7 tab 06/04/19 ATTENDING PHYSICIAN STATEMENT I saw and evaluated the patient. I reviewed the resident's note and discussed the case with the resident. I agree with the resident's findings and plan as documented. SUBJECTIVE: OBJECTIVE: ASSESSMENT AND PLAN:
== END 2019-06-04 19:13 | disposition home or self-care (01) | DRG 872 ==
LOC: JER 12:12 → JERBED 21:26 → JICU 06-01 00:54 → J6S 06-03 20:51
PROVIDERS: ADMIT Internal Medicine; ATTEND Internal Medicine
DX: A41.9 Sepsis, unspecified organism (principal); N10 Acute pyelonephritis; F17.210 Nicotine dependence, cigarettes, uncomplicated; D72.829 Elevated white blood cell count, unspecified; R00.0 Tachycardia, unspecified
CPT/HCPCS: 36415; 71045-TC-FY; 71275-TC; 74177-TC; 76775-TC; 76856-TC; 80048; 80053; 80061; 81003; 82550; 82803; 83516; 83520; 83605; 83615; 83721; 83735; 84100; 84155; 84165; 84484; 84703; 85025; 85027; 85610; 85651; 85730; 86038; 86140; 86225; 86256; 87040; 87077; 87081; 87086; 87186; 87389; 93005; 93010; 93306-TC; 93880-TC; 99285-25; J0131; J1644; J7030